=== PATIENT | female | born 1975 | race Caucasian/White ===

== ENCOUNTER → 2016-06-08 | Outpatient (CLI) | payer MEDICAID ==
[~2016-06-08] MED LIST: /ESOM40CA PO; BACL10TA2 PO; CELE-19 PO; COLA50CA3 PO; HYDR25T PO; LAMO10TA PO; MONT10TA2 PO; MULTTAB48 PO; POLYPOW XX; PROAAER INH; QUET1TAB7 PO; SERO50TA PO; SERT-141 PO; TRAM100T13 PO; TRAZ100T4 PO; ZOLO50TA PO; ZOLP5TAB PO
--- NOTE | 2016-06-30 00:46 | ECWPNPC ---
PATIENT NAME: LORA POSADA : 1975 GENDER: FEMALE VISIT DATE: 06/08/2016 DISCHARGE DATE: 06/08/16 1515 VISIT LOCKED DATE TIME: PHYSICIAN: DILLON WOLFF RESOURCE: DILLON WOLFF REASON FOR APPOINTMENT 1. LEG PAIN HISTORY OF PRESENT ILLNESS HISTORY OF PRESENT ILLNESS: PAIN THE PATIENT DESCRIBES THE PAIN... FALL RISK SCREENING: SCREENING :NO FALLS IN THE PAST YEAR TODAY'S VISIT: NOTES: DOING GENERALLY OK BUT IS HAVING STABBING PAIN IN BOTH CALVES AT NIGHT. RIGHT THIGH IS GENERALLY WELL CONTROLLED WITH PAIN ON CURRENT MEDS. RATES PAIN 4/10. . CURRENT MEDICATIONS TAKING SEROQUEL [address] HANCOCK ORALLY AT BEDTIME TAKING MONTELUKAST SODIUM 10 MG TABLET 1 TABLET IN THE EVENING ORALLY AT BEDTIME TAKING NEXIUM 40 MG CAPSULE DELAYED RELEASE 1 CAPSULE ORALLY ONCE A DAY TAKING PROAIR HFA 108 (90 BASE) MCG/ACT AEROSOL SOLUTION 1-2 PUFFS NEEDED INHALATION EVERY 4-6 HRS TAKING ADVAIR DISKUS 500-50 MCG/DOSE AEROSOL POWDER BREATH ACTIVATED 1 PUFF INHALATION TWICE A DAY TAKING AMBIEN 10 MG TABLET 1 TABLET AT BEDTIME NEEDED ORALLY ONCE A DAY TAKING LATUDA TABLET 1 TAB ORALLY ONCE A DAY AT BEDTIME TAKING VALIUM 2 MG TABLET 1 TABLET NEEDED ORALLY THREE TIMES A DAY TAKING BACLOFEN 10 MG TABLET 1 TABLET WITH FOOD OR MILK ORALLY TWICE DAILY TAKING COLACE 100 MG CAPSULE 1 CAPSULE ORALLY TWICE A DAY TAKING TRAMADOL HCL 50 MG TABLET 1-2 TABLET ORALLY EVERY 6 HRS PRN PAIN MDD=6 NOT-TAKING PERPHENAZINE-AMITRIPTYLINE 2-10 MG TABLET 1 TABLET ORALLY TWICE A DAY NOT-TAKING TRAMADOL HCL 50 MG TABLET 1-2 TABLET ORALLY EVERY 6 HRS PRN PAIN MDD=6 NOT-TAKING COLACE 100 MG CAPSULE 2 CAPSULE NEEDED ORALLY TWICE DAILY NOT-TAKING SENNA S 8.6-50 MG TABLET 2 TABLETS IN THE EVENING NEEDED ORALLY AT BEDTIME NOT-TAKING IBUPROFEN 800 MG TABLET 1 TABLET ORALLY TWICE DAILY NOT-TAKING IBUPROFEN 800 MG TABLET 1 TABLET ORALLY TWICE DAILY NOT-TAKING MULTIVITAMIN/MINERALS 27-1 MG CAPSULE 1 TAB ORALLY DAILY DISCONTINUED COLACE 100 MG CAPSULE 1 CAPSULE NEEDED ORALLY BID PRN DISCONTINUED BACLOFEN 10 MG TABLET 1 TABLET WITH FOOD OR MILK ORALLY TWICE DAILY MEDICATION LIST REVIEWED AND RECONCILED WITH THE PATIENT PAST MEDICAL HISTORY RIGHT LEG CHRONIC PAIN FROM SEVERE LACERATION AT AGE 13 ANXIETY AND DEPRESSION TOBACCO ABUSE ASTHMA IBS LEARNING DISORDER GERD ANEMIA CHRONIC FATIGUE SYNDROME ALLERGIES GABAPENTIN: PALPITATIONS: ALLERGY PENICILLIN (FOR ALLERGIES USE ONLY): VOMITING: ALLERGY MOBIC: DIARRHEA: ALLERGY AMOXICILLIN: VOMITING: ALLERGY SOCIAL HISTORY GENERAL: TOBACCO USE ARE YOU A:CURRENT SMOKER HOW MANY CIGARETTES A DAY DO YOU SMOKE?11-20 HOW SOON AFTER YOU WAKE UP DO YOU SMOKE YOUR FIRST CIGARETTE?WITHIN 5 MIN HOW OFTEN DO YOU SMOKE CIGARETTES?EVERY DAY PATIENT COUNSELED ON THE DANGERS OF TOBACCO USE AND URGED TO QUIT: COUNCELED ON THE IMPORTANCE OF QUITTING. ARE YOU INTERESTED IN QUITTING?THINKING ABOUT QUITTING LEARNING BARRIERS / SPECIAL NEEDS ORIENTED TO PLAN OF CARE: PATIENT, PAIN MANAGEMENT PATIENT, ORIENTED TO PLAN OF CARE: PATIENT, PAIN MANAGEMENT PATIENT. NEW PATIENT PAIN DIARY TODAY'S VISITNOTES FROM 0-10, WHAT LEVEL IS YOUR PAIN TODAY?0 PAIN CLINIC PFS, CLERGY, PUBLIC HEALTH REFERRALS PFS REFERRAL NEEDED?NO CLERGY REFERRAL NEEDED?NO PUBLIC HEALTH REFERRAL NEEDED?NO WAS THE PROVIDER NOTIFIED OF ANY PERTINENT INFO?NO PFS REFERRAL NEEDED?NO CLERGY REFERRAL NEEDED?NO PUBLIC HEALTH REFERRAL NEEDED?NO WAS THE PROVIDER NOTIFIED OF ANY PERTINENT INFO?NO REVIEW OF SYSTEMS CONSTITUTIONAL: ANY CHANGE IN YOUR MEDICAL CONDITION? NO . CHILLS NO . FEVER NO . INFECTION: DO YOU HAVE NEW INFECTIONS? NO . DO YOU HAVE HISTORY OF MRSA? NO . MUSCULOSKELETAL: ANY NEW PATTERNS OF PAIN OR NUMBNESS? YES, STABBING PAINS IN CALVES EVERYNIGHT SINCE WINTER BEGAN--THESE WAKE HER UP AT NIGHT . GASTROENTEROLOGY: ANY NEW CHANGE IN BOWEL CONTROL? NO . GENITOURINARY: ANY NEW CHANGE IN BLADDER CONTROL? NO . IS THERE A CHANCE YOU COULD BE ? NO . HEMATOLOGY/LYMPH: DO YOU TAKE ANY BLOOD THINNERS? (FOR EXAMPLE- COUMADIN, PLAVIX, AGGRENOX, PLATEL, PRADAXA, OR XARELTO) NO . WHEN WAS YOUR LAST DOSE? DATE: TIME: . NEUROLOGY: HAVE YOU FALLEN IN THE PAST 6 MONTHS? NO . ANY NEW EXTREMITY NUMBNESS OR WEAKNESS? NO . CARDIOLOGY: DO YOU HAVE A PACEMAKER OR DEFIBRILLATOR? NO . RESPIRATORY: HAVE YOU BEEN SICK IN THE PAST WEEK? NO . FEVER NO . FLU LIKE SYMPTOMS? NO . DO YOU USE ANY TYPE OF TOBACCO (SMOKE, SMOKELESS, CHEW)? WANTS TO QUIT SMOKING . COUGH NO . INTEGUMENTARY: DO YOU HAVE ANY RASHES OR OPEN SORES? NO . ALLERGIC/IMMUNO: ARE YOU ALLERGIC TO SHELLFISH OR IV DYE? NO . ANY NEW ALLERGIES? NO . PSYCHIATRIC: DO YOU HAVE THOUGHTS OF HURTING YOURSELF OR SOMEONE ELSE? NO . ARE YOU ABUSED, NEGLECTED, OR IN AN UNSAFE ENVIRONMENT? YES, FEELS HER APPARTMENT BUILDING IS UNSAFE. . ENDOCRINOLOGY: ARE YOU DIABETIC? NO . OTHER: DO YOU NEED ANY PRESCRIPTIONS? YES MONTELUKAST,NEXIUM,PROAIR,COLACE,TRAMADOL . IF YES, PLEASE LIST: ____ . ANY NEW PROBLEMS WITH YOUR MEDICATIONS? NO . WHEN DID YOU LAST EAT? ____ . WHEN DID YOU LAST DRINK? ____ . WHAT DID YOU LAST DRINK? ____ . NAME OF PERSON DRIVING YOU HOME? ____ . DO YOU HAVE ANY OTHER QUESTIONS OR CONCERNS YES,WOULD LIKE A LETTER STATING SHE NEEDS A DOWNSTAIRS APPARTMENT . REVIEWED BY: PROVIDER: DILLON YAO . VITAL SIGNS WT 106.2 LBS, HT 67 IN, BMI 16.63 INDEX, BP 113/69 MM HG, HR 78 /MIN, RR 16 /MIN, TEMP 98.5 F, OXYGEN SAT % 100%, NA INITIALS SC14:24, REVIEWED BY: AD. EXAMINATION GENERAL EXAMINATION: PSYCHALERT , ORIENTED X 3 . SPEACH RAMBLING - HARD TO KEEP ON TRACK. LUNGS:CLEAR TO AUSCULTATION BILATERALLY. HEART:HEART RATE REGULAR. MUSCULOSKELETAL:MILD TENDERNESS OVER LOW BACK AND RIGHT THIGH TIGHTNESS NOTED OVER RIGHT ILIOPSOAS. PAIN WITH EXTERNAL ROTATATION BILATERALLY AT HIPS.. ABLE TO STAND EASILY. ASSESSMENTS LEG PAIN - M79.606 (PRIMARY) TREATMENT LEG PAIN REFILL BACLOFEN TABLET, 10 MG, 1 TABLET WITH FOOD OR MILK, ORALLY, TWICE DAILY, 30 DAY(S), 60, REFILLS 5 REFILL COLACE CAPSULE, 100 MG, 1 CAPSULE, ORALLY, TWICE A DAY, 30 DAY(S), 60, REFILLS 5 REFILL TRAMADOL HCL TABLET, 50 MG, 1-2 TABLET, ORALLY, EVERY 6 HRS PRN PAIN MDD=6, 30 DAY(S), 180, REFILLS 5 NOTES: DO EXERCISES AND STRETCHES TO CALVES AND HIPS. CONTINUE CURRENT MEDS. PROCEDURE CODES FA211 ESTABILISHED PATIENT [facility] CHARGE DISPOSITION & COMMUNICATION FOLLOW UP [address] ESTRADA ELECTRONICALLY SIGNED BY NAMITA BERNARD ON 06/29/2016 AT 01:39 PM EST DISCLAIMER : THIS IS A VISIT SUMMARY EXTRACTED FROM THE [employer] CHART. IT IS NOT A COPY OF THE [employer] PROGRESS NOTE. CATARINA
== END ==
LOC: M PAIN 13:40
PROVIDERS: ATTEND Nurse Practitioner Family
DX: Z09 Encounter for follow-up examination after completed treatment for conditions other than malignant neoplasm (principal); G89.29 Other chronic pain; M79.606 Pain in leg, unspecified; R53.82 Chronic fatigue, unspecified; F41.9 Anxiety disorder, unspecified; F17.200 Nicotine dependence, unspecified, uncomplicated; J45.909 Unspecified asthma, uncomplicated; K58.9 Irritable bowel syndrome, unspecified; K21.9 Gastro-esophageal reflux disease without esophagitis; D64.9 Anemia, unspecified; Z88.8 Allergy status to other drugs, medicaments and biological substances; Z88.0 Allergy status to penicillin; Z88.6 Allergy status to analgesic agent; Z88.3 Allergy status to other anti-infective agents; Z79.891 Long term (current) use of opiate analgesic; Z79.899 Other long term (current) drug therapy; Z87.828 Personal history of other (healed) physical injury and trauma

== ENCOUNTER 2016-07-12 16:11 | Emergency (ER) | payer MEDICAID ==
[~2016-07-12] VITALS: Ht 167.6 cm; Wt 47.6 kg
[2016-07-12 16:11] VITALS: BP 93/63
[~2016-07-12 16:11] MED LIST changes: -SERT-141 PO; +SERT50TA PO
[2016-07-12] MEDS ORDERED: MONT10TA2 PO (16:36)
[2016-07-12] MEDS ORDERED: ALBU17IN INH (16:36)
[2016-07-12] MEDS ORDERED: BACL10TA2 PO (16:36)
== END 2016-07-12 16:52 | disposition left against medical advice (07) ==
LOC: M ED 16:49
DX: Z53.21 Procedure and treatment not carried out due to patient leaving prior to being seen by health care provider (principal)

== ENCOUNTER → 2016-09-16 | Outpatient (CLI) | payer OTHER, MEDICAID ==
[~2016-09-16] MED LIST changes: +ALBU17IN INH
--- NOTE | 2016-09-29 02:11 | ECWPNPC ---
PATIENT NAME: LORA POSADA : 1975 GENDER: FEMALE VISIT DATE: 09/16/2016 DISCHARGE DATE: 09/16/16 1517 VISIT LOCKED DATE TIME: PHYSICIAN: DILLON WOLFF RESOURCE: DILLON WOLFF HISTORY OF PRESENT ILLNESS HISTORY OF PRESENT ILLNESS: PAIN THE PATIENT DESCRIBES THE PAIN... FALL RISK SCREENING: SCREENING :NO FALLS IN THE PAST YEAR TODAY'S VISIT: NOTES: IS NOTING PAIN IN RIGHT LEG THIGH, AND IN FFEET WITH PROLONGLONED WALKING. RTAES PAIN 0-6/10 WITH MIN TO NO PAIN NOTED WHEN SEATED. STATES HER MEDS ARE HELPFUL AND THAT SHE IS HAVING NO ADVERSE REACTIONS TO HER MEDS.. CURRENT MEDICATIONS TAKING MONTELUKAST SODIUM 10 MG TABLET 1 TABLET IN THE EVENING ORALLY AT BEDTIME TAKING PROAIR HFA 108 (90 BASE) MCG/ACT AEROSOL SOLUTION 1-2 PUFFS NEEDED INHALATION EVERY 4-6 HRS TAKING ADVAIR DISKUS 500-50 MCG/DOSE AEROSOL POWDER BREATH ACTIVATED 1 PUFF INHALATION TWICE A DAY TAKING AMBIEN 10 MG TABLET 1 TABLET AT BEDTIME NEEDED ORALLY ONCE A DAY TAKING LATUDA TABLET 1 TAB ORALLY ONCE A DAY AT BEDTIME TAKING VALIUM 2 MG TABLET 1 TABLET NEEDED ORALLY THREE TIMES A DAY TAKING BACLOFEN 10 MG TABLET 1 TABLET WITH FOOD OR MILK ORALLY TWICE DAILY TAKING COLACE 100 MG CAPSULE 1 CAPSULE ORALLY TWICE A DAY TAKING TRAMADOL HCL 50 MG TABLET 1-2 TABLET ORALLY EVERY 6 HRS PRN PAIN MDD=6 NOT-TAKING SEROQUEL [address] HANCOCK ORALLY AT BEDTIME NOT-TAKING NEXIUM 40 MG CAPSULE DELAYED RELEASE 1 CAPSULE ORALLY ONCE A DAY NOT-TAKING PERPHENAZINE-AMITRIPTYLINE 2-10 MG TABLET 1 TABLET ORALLY TWICE A DAY NOT-TAKING TRAMADOL HCL 50 MG TABLET 1-2 TABLET ORALLY EVERY 6 HRS PRN PAIN MDD=6 NOT-TAKING COLACE 100 MG CAPSULE 2 CAPSULE NEEDED ORALLY TWICE DAILY NOT-TAKING SENNA S 8.6-50 MG TABLET 2 TABLETS IN THE EVENING NEEDED ORALLY AT BEDTIME NOT-TAKING IBUPROFEN 800 MG TABLET 1 TABLET ORALLY TWICE DAILY NOT-TAKING IBUPROFEN 800 MG TABLET 1 TABLET ORALLY TWICE DAILY NOT-TAKING MULTIVITAMIN/MINERALS 27-1 MG CAPSULE 1 TAB ORALLY DAILY MEDICATION LIST REVIEWED AND RECONCILED WITH THE PATIENT PAST MEDICAL HISTORY RIGHT LEG CHRONIC PAIN FROM SEVERE LACERATION AT AGE 13 ANXIETY AND DEPRESSION TOBACCO ABUSE ASTHMA IBS LEARNING DISORDER GERD ANEMIA CHRONIC FATIGUE SYNDROME ALLERGIES GABAPENTIN: PALPITATIONS: ALLERGY PENICILLIN (FOR ALLERGIES USE ONLY): VOMITING: ALLERGY MOBIC: DIARRHEA: ALLERGY AMOXICILLIN: VOMITING: ALLERGY SURGICAL HISTORY PARTIAL HYSTERECTOMY 2005 D AND C 2004 SOCIAL HISTORY GENERAL: TOBACCO USE ARE YOU A:CURRENT SMOKER HOW MANY CIGARETTES A DAY DO YOU SMOKE?11-20 HOW SOON AFTER YOU WAKE UP DO YOU SMOKE YOUR FIRST CIGARETTE?WITHIN 5 MIN HOW OFTEN DO YOU SMOKE CIGARETTES?EVERY DAY PATIENT COUNSELED ON THE DANGERS OF TOBACCO USE AND URGED TO QUIT:09/16/2016 COUNCELED ON THE IMPORTANCE OF QUITTING. ARE YOU INTERESTED IN QUITTING?THINKING ABOUT QUITTING COUNSELED THE PATIENT ON SMOKING CESSATION, EDUCATION [id number] LEARNING BARRIERS / SPECIAL NEEDS ORIENTED TO PLAN OF CARE: PATIENT, PAIN MANAGEMENT PATIENT, ORIENTED TO PLAN OF CARE: PATIENT, PAIN MANAGEMENT PATIENT. NEW PATIENT PAIN DIARY TODAY'S VISITNOTES FROM 0-10, WHAT LEVEL IS YOUR PAIN TODAY?0 PAIN CLINIC PFS, CLERGY, PUBLIC HEALTH REFERRALS PFS REFERRAL NEEDED?NO CLERGY REFERRAL NEEDED?NO PUBLIC HEALTH REFERRAL NEEDED?NO WAS THE PROVIDER NOTIFIED OF ANY PERTINENT INFO?NO PFS REFERRAL NEEDED?NO CLERGY REFERRAL NEEDED?NO PUBLIC HEALTH REFERRAL NEEDED?NO WAS THE PROVIDER NOTIFIED OF ANY PERTINENT INFO?NO HOSPITALIZATION/MAJOR DIAGNOSTIC PROCEDURE INPATIENT MENTAL HEALTH DUE TO DEPRESSION 2004 RIGHT LEG SURGERY 1988 REVIEW OF SYSTEMS CONSTITUTIONAL: ANY CHANGE IN YOUR MEDICAL CONDITION? NO . CHILLS NO . FEVER NO . INFECTION: DO YOU HAVE NEW INFECTIONS? NO . DO YOU HAVE HISTORY OF MRSA? NO . MUSCULOSKELETAL: ANY NEW PATTERNS OF PAIN OR NUMBNESS? YES. PT STATES NEW PATTERNS OF NUMBNESS TO BILAT HANDS AND FEET AT NIGHT. . GASTROENTEROLOGY: ANY NEW CHANGE IN BOWEL CONTROL? NO . GENITOURINARY: ANY NEW CHANGE IN BLADDER CONTROL? NO . IS THERE A CHANCE YOU COULD BE ? NO . HEMATOLOGY/LYMPH: DO YOU TAKE ANY BLOOD THINNERS? (FOR EXAMPLE- COUMADIN, PLAVIX, AGGRENOX, PLATEL, PRADAXA, OR XARELTO) NO . WHEN WAS YOUR LAST DOSE? DATE: TIME: . NEUROLOGY: HAVE YOU FALLEN IN THE PAST 6 MONTHS? NO . ANY NEW EXTREMITY NUMBNESS OR WEAKNESS? NO . HEADACHE INTERMITTANT . CARDIOLOGY: DO YOU HAVE A PACEMAKER OR DEFIBRILLATOR? NO . RESPIRATORY: HAVE YOU BEEN SICK IN THE PAST WEEK? NO . FEVER NO . FLU LIKE SYMPTOMS? NO . COUGH NO . INTEGUMENTARY: DO YOU HAVE ANY RASHES OR OPEN SORES? NO . ALLERGIC/IMMUNO: ARE YOU ALLERGIC TO SHELLFISH OR IV DYE? NO . ANY NEW ALLERGIES? NO . PSYCHIATRIC: DO YOU HAVE THOUGHTS OF HURTING YOURSELF OR SOMEONE ELSE? NO . ARE YOU ABUSED, NEGLECTED, OR IN AN UNSAFE ENVIRONMENT? NO . ENDOCRINOLOGY: ARE YOU DIABETIC? NO . OTHER: DO YOU NEED ANY PRESCRIPTIONS? NO . IF YES, PLEASE LIST: ____ . ANY NEW PROBLEMS WITH YOUR MEDICATIONS? NO . WHEN DID YOU LAST EAT? ____ . WHEN DID YOU LAST DRINK? ____ . WHAT DID YOU LAST DRINK? ____ . NAME OF PERSON DRIVING YOU HOME? ____ . DO YOU HAVE ANY OTHER QUESTIONS OR CONCERNS NO . PSYCHOLOGY: ARE YOU RECEIVING COUNSELING? SEEING BEHAVIORAL HEALTH . REVIEWED BY: PROVIDER: DILLON YAO . VITAL SIGNS WT 105.4 LBS, HT 67 IN, BMI 16.51 INDEX, BP 119/69 MM HG, HR 85 /MIN, RR 16 /MIN, TEMP 98.4 F, OXYGEN SAT % 99%, SAFE IN ENV? (Y/N) Y, NA INITIALS AW 1446, REVIEWED BY: EM. EXAMINATION GENERAL EXAMINATION: PSYCHALERT , ORIENTED X 3 . SPEACH RAMBLING - HARD TO KEEP ON TRACK. LUNGS:CLEAR TO AUSCULTATION BILATERALLY. HEART:HEART RATE REGULAR. MUSCULOSKELETAL:MILD TENDERNESS OVER LOW BACK AND RIGHT THIGH TIGHTNESS NOTED OVER RIGHT ILIOPSOAS. PAIN WITH EXTERNAL ROTATATION BILATERALLY AT HIPS.. ABLE TO STAND EASILY. ASSESSMENTS LEG PAIN - M79.606 (PRIMARY) TREATMENT LEG PAIN START NICODERM CQ PATCH 24 HOUR, 21 MG/24HR, 1 PATCH TO SKIN, TRANSDERMAL, ONCE A DAY, 30 DAY(S), 30, REFILLS 0 NOTES: DO NOT SMOKE AND USE NICODERM AT THE SAME TIME. PROCEDURE CODES FA211 ESTABILISHED PATIENT [facility] CHARGE DISPOSITION & COMMUNICATION FOLLOW UP 3 MONTH (REASON: LEG PAIN) ELECTRONICALLY SIGNED BY NAMITA BERNARD ON 09/28/2016 AT 08:38 AM EDT DISCLAIMER : THIS IS A VISIT SUMMARY EXTRACTED FROM THE [employer] CHART. IT IS NOT A COPY OF THE [employer] PROGRESS NOTE. MTDD
== END | disposition home or self-care (01) ==
LOC: M PAIN 14:40
PROVIDERS: ATTEND Nurse Practitioner Family
DX: G89.29 Other chronic pain (principal); M79.606 Pain in leg, unspecified; J45.909 Unspecified asthma, uncomplicated; F41.9 Anxiety disorder, unspecified; F33.9 Major depressive disorder, recurrent, unspecified; K58.9 Irritable bowel syndrome, unspecified; K21.9 Gastro-esophageal reflux disease without esophagitis; D64.9 Anemia, unspecified; F81.9 Developmental disorder of scholastic skills, unspecified; Z79.899 Other long term (current) drug therapy; Z79.51 Long term (current) use of inhaled steroids; Z88.0 Allergy status to penicillin; Z88.8 Allergy status to other drugs, medicaments and biological substances; F17.210 Nicotine dependence, cigarettes, uncomplicated

== ENCOUNTER → 2016-12-28 | Outpatient (CLI) | payer OTHER, MEDICAID ==
[~2016-12-28] MED LIST changes: -CELE-19 PO; +CELE1CAP4 PO; +HYDR-3363 PO; -HYDR25T PO; +TRAZ-136 PO; -TRAZ100T4 PO
--- NOTE | 2017-01-09 23:30 | ECWPNPC ---
PATIENT NAME: LORA POSADA : 1975 GENDER: FEMALE VISIT DATE: 12/28/2016 DISCHARGE DATE: 12/28/16 1543 VISIT LOCKED DATE TIME: PHYSICIAN: DILLON WOLFF RESOURCE: DILLON WOLFF HISTORY OF PRESENT ILLNESS HISTORY OF PRESENT ILLNESS: PAIN THE PATIENT DESCRIBES THE PAIN... FALL RISK SCREENING: SCREENING :NO FALLS IN THE PAST YEAR TODAY'S VISIT: NOTES: IS HAVING TROUBLE WITH MENTAL HEALTH MEDS. REPORTS NEW PAIN LEFT PAIN IN LEFT THIGH INTERMITTANT. IS NOTING MORE SPASMS SINCE BEING TAKEN OFF VALIUMRATES PAIN IN RIGHT LEG 0-7/10 DEPENDING ON ACTIVITY. NOTES CURRENT MEDS ALLOW HER TO FUNCTION AND THAT SHE HAS MOST DAYS NO PAIN IN THE LEG.. CURRENT MEDICATIONS TAKING MONTELUKAST SODIUM 10 MG TABLET 1 TABLET IN THE EVENING ORALLY AT BEDTIME TAKING PROAIR HFA 108 (90 BASE) MCG/ACT AEROSOL SOLUTION 1-2 PUFFS NEEDED INHALATION EVERY 4-6 HRS TAKING ADVAIR DISKUS 500-50 MCG/DOSE AEROSOL POWDER BREATH ACTIVATED 1 PUFF INHALATION TWICE A DAY TAKING LATUDA TABLET 1 TAB ORALLY ONCE A DAY AT BEDTIME TAKING BACLOFEN 10 MG TABLET 1 TABLET WITH FOOD OR MILK ORALLY TWICE DAILY TAKING COLACE 100 MG CAPSULE 1 CAPSULE ORALLY TWICE A DAY TAKING NICODERM CQ 21 MG/24HR PATCH 24 HOUR 1 PATCH TO SKIN TRANSDERMAL ONCE A DAY TAKING TRAMADOL HCL 50 MG TABLET 1-2 TABLET ORALLY EVERY 6 HRS PRN PAIN MDD=6 NOT-TAKING AMBIEN 10 MG TABLET 1 TABLET AT BEDTIME NEEDED ORALLY ONCE A DAY NOT-TAKING VALIUM 2 MG TABLET 1 TABLET NEEDED ORALLY THREE TIMES A DAY NOT-TAKING SEROQUEL [address] HANCOCK ORALLY AT BEDTIME NOT-TAKING NEXIUM 40 MG CAPSULE DELAYED RELEASE 1 CAPSULE ORALLY ONCE A DAY NOT-TAKING PERPHENAZINE-AMITRIPTYLINE 2-10 MG TABLET 1 TABLET ORALLY TWICE A DAY NOT-TAKING TRAMADOL HCL 50 MG TABLET 1-2 TABLET ORALLY EVERY 6 HRS PRN PAIN MDD=6 NOT-TAKING COLACE 100 MG CAPSULE 2 CAPSULE NEEDED ORALLY TWICE DAILY NOT-TAKING SENNA S 8.6-50 MG TABLET 2 TABLETS IN THE EVENING NEEDED ORALLY AT BEDTIME NOT-TAKING IBUPROFEN 800 MG TABLET 1 TABLET ORALLY TWICE DAILY NOT-TAKING IBUPROFEN 800 MG TABLET 1 TABLET ORALLY TWICE DAILY NOT-TAKING MULTIVITAMIN/MINERALS 27-1 MG CAPSULE 1 TAB ORALLY DAILY MEDICATION LIST REVIEWED AND RECONCILED WITH THE PATIENT PAST MEDICAL HISTORY RIGHT LEG CHRONIC PAIN FROM SEVERE LACERATION AT AGE 13 ANXIETY AND DEPRESSION TOBACCO ABUSE ASTHMA IBS LEARNING DISORDER GERD ANEMIA CHRONIC FATIGUE SYNDROME ALLERGIES GABAPENTIN: PALPITATIONS: ALLERGY PENICILLIN (FOR ALLERGIES USE ONLY): VOMITING: ALLERGY MOBIC: DIARRHEA: ALLERGY AMOXICILLIN: VOMITING: ALLERGY SURGICAL HISTORY PARTIAL HYSTERECTOMY 2005 D AND C 2004 HOSPITALIZATION/MAJOR DIAGNOSTIC PROCEDURE INPATIENT MENTAL HEALTH DUE TO DEPRESSION 2004 RIGHT LEG SURGERY 1988 REVIEW OF SYSTEMS REVIEWED BY: PROVIDER: DILLON MURRAYP . CONSTITUTIONAL: ANY CHANGE IN YOUR MEDICAL CONDITION? YES, PT STATES SHE DEVELPOED A RASH FROM NICODERM PATCH, STOPPED USING IT AND STARTED SMOKING AGAIN. DISCUSSED ROTATING SITES AND USING OTC HYDROCORTISONE FOR RASH . CHILLS NO . FEVER NO . INFECTION: DO YOU HAVE NEW INFECTIONS? NO . DO YOU HAVE HISTORY OF MRSA? NO . MUSCULOSKELETAL: ANY NEW PATTERNS OF PAIN OR NUMBNESS? YES, PT C/O LEFT FOOT DIGIT #1 PAIN X WEEK. PT STATES SHE DROPPED A CAN OF FOOD ON TOE . GASTROENTEROLOGY: ANY NEW CHANGE IN BOWEL CONTROL? NO . GENITOURINARY: ANY NEW CHANGE IN BLADDER CONTROL? NO . IS THERE A CHANCE YOU COULD BE ? NO . HEMATOLOGY/LYMPH: DO YOU TAKE ANY BLOOD THINNERS? (FOR EXAMPLE- COUMADIN, PLAVIX, AGGRENOX, PLATEL, PRADAXA, OR XARELTO) NO . WHEN WAS YOUR LAST DOSE? DATE: TIME: . NEUROLOGY: HAVE YOU FALLEN IN THE PAST 6 MONTHS? NO . ANY NEW EXTREMITY NUMBNESS OR WEAKNESS? NO . CARDIOLOGY: DO YOU HAVE A PACEMAKER OR DEFIBRILLATOR? NO . RESPIRATORY: HAVE YOU BEEN SICK IN THE PAST WEEK? NO . FEVER NO . FLU LIKE SYMPTOMS? NO . DO YOU USE ANY TYPE OF TOBACCO (SMOKE, SMOKELESS, CHEW)? WORKING ON SMOKING CESSATION . COUGH NO . INTEGUMENTARY: DO YOU HAVE ANY RASHES OR OPEN SORES? NO . ALLERGIC/IMMUNO: ARE YOU ALLERGIC TO SHELLFISH OR IV DYE? NO . ANY NEW ALLERGIES? NO . PSYCHIATRIC: DO YOU HAVE THOUGHTS OF HURTING YOURSELF OR SOMEONE ELSE? NO . ARE YOU ABUSED, NEGLECTED, OR IN AN UNSAFE ENVIRONMENT? NO . ENDOCRINOLOGY: ARE YOU DIABETIC? NO . OTHER: DO YOU NEED ANY PRESCRIPTIONS? NO . IF YES, PLEASE LIST: ____ . ANY NEW PROBLEMS WITH YOUR MEDICATIONS? NO . WHEN DID YOU LAST EAT? ____ . WHEN DID YOU LAST DRINK? ____ . WHAT DID YOU LAST DRINK? ____ . NAME OF PERSON DRIVING YOU HOME? ____ . DO YOU HAVE ANY OTHER QUESTIONS OR CONCERNS NO . VITAL SIGNS WT 112.6 LBS, HT 67 IN, BMI 17.63 INDEX, BP 107/64 MM HG, HR 93 /MIN, RR 18 /MIN, TEMP 98.0 F, OXYGEN SAT % 99%, NA INITIALS SC 14:36. EXAMINATION GENERAL EXAMINATION: PSYCHALERT , ORIENTED X 3 . SPEACH RAMBLING - HARD TO KEEP ON TRACK. LUNGS:CLEAR TO AUSCULTATION BILATERALLY. HEART:HEART RATE REGULAR. MUSCULOSKELETAL:MILD TENDERNESS OVER LOW BACK AND RIGHT THIGH TIGHTNESS NOTED OVER RIGHT ILIOPSOAS. PAIN WITH EXTERNAL ROTATATION BILATERALLY AT HIPS.. ABLE TO STAND EASILY. ASSESSMENTS LEG PAIN - M79.606 (PRIMARY) TREATMENT LEG PAIN START BACLOFEN TABLET, 10 MG, 1 TABLET WITH FOOD OR MILK, ORALLY, THREE TIMES A DAY, 30 DAY(S), 90, REFILLS 1 REFILL TRAMADOL HCL TABLET, 50 MG, 1-2 TABLET, ORALLY, EVERY 6 HRS PRN PAIN MDD=6, 30 DAY(S), 180, REFILLS 2 NOTES: CALL [facility] ABOUT A PRIMARY CARE DOCTOR. PROCEDURE CODES FA211 ESTABILISHED PATIENT [facility] CHARGE DISPOSITION & COMMUNICATION FOLLOW UP 3 MONTHS (REASON: LEG PAIN) ELECTRONICALLY SIGNED BY NAMITA BERNARD ON 01/09/2017 AT 02:55 PM EDT DISCLAIMER : THIS IS A VISIT SUMMARY EXTRACTED FROM THE [employer] CHART. IT IS NOT A COPY OF THE [employer] PROGRESS NOTE. CATARINA
== END | disposition home or self-care (01) ==
LOC: M PAIN 14:45
PROVIDERS: ATTEND Nurse Practitioner Family
DX: G89.29 Other chronic pain (principal); M79.606 Pain in leg, unspecified; F41.9 Anxiety disorder, unspecified; F33.9 Major depressive disorder, recurrent, unspecified; J45.909 Unspecified asthma, uncomplicated; K58.9 Irritable bowel syndrome, unspecified; F81.9 Developmental disorder of scholastic skills, unspecified; K21.9 Gastro-esophageal reflux disease without esophagitis; D64.9 Anemia, unspecified; F17.210 Nicotine dependence, cigarettes, uncomplicated; Z88.0 Allergy status to penicillin; Z88.8 Allergy status to other drugs, medicaments and biological substances; Z79.899 Other long term (current) drug therapy; Z79.51 Long term (current) use of inhaled steroids

== ENCOUNTER → 2017-05-13 | Outpatient (CLI) | payer OTHER, MEDICAID | LOC: M PAIN 13:30 | DX: M79.606 Pain in leg, unspecified (principal); Q79.6 Ehlers-Danlos syndromes; Z79.899 Other long term (current) drug therapy; Z79.891 Long term (current) use of opiate analgesic; F17.210 Nicotine dependence, cigarettes, uncomplicated; Z88.0 Allergy status to penicillin; Z88.1 Allergy status to other antibiotic agents; Z88.8 Allergy status to other drugs, medicaments and biological substances | CPT/HCPCS: G0463 ==

== ENCOUNTER → 2017-06-13 | Outpatient (CLI) | payer OTHER, MEDICAID | LOC: M PAIN 14:15 | DX: M79.606 Pain in leg, unspecified (principal); Q79.6 Ehlers-Danlos syndromes; F41.9 Anxiety disorder, unspecified; F32.9 Major depressive disorder, single episode, unspecified; F17.210 Nicotine dependence, cigarettes, uncomplicated; J45.909 Unspecified asthma, uncomplicated; Z79.899 Other long term (current) drug therapy; Z88.0 Allergy status to penicillin; Z88.1 Allergy status to other antibiotic agents; Z88.6 Allergy status to analgesic agent; Z88.8 Allergy status to other drugs, medicaments and biological substances | CPT/HCPCS: G0463 ==

== ENCOUNTER → 2017-08-29 | Outpatient (CLI) | payer OTHER, MEDICAID | LOC: M PAIN 14:15 | DX: M79.606 Pain in leg, unspecified (principal); Q79.6 Ehlers-Danlos syndromes; F41.9 Anxiety disorder, unspecified; F32.9 Major depressive disorder, single episode, unspecified; J45.909 Unspecified asthma, uncomplicated; K21.9 Gastro-esophageal reflux disease without esophagitis; F17.210 Nicotine dependence, cigarettes, uncomplicated; R53.82 Chronic fatigue, unspecified; Z79.899 Other long term (current) drug therapy; Z88.0 Allergy status to penicillin; Z88.5 Allergy status to narcotic agent; Z88.8 Allergy status to other drugs, medicaments and biological substances | CPT/HCPCS: G0463 ==

== ENCOUNTER → 2017-09-21 | Outpatient (CLI) | payer OTHER, MEDICAID | LOC: M PAIN 14:30 | DX: Q79.6 Ehlers-Danlos syndromes (principal); M79.671 Pain in right foot; F41.9 Anxiety disorder, unspecified; F32.9 Major depressive disorder, single episode, unspecified; F17.210 Nicotine dependence, cigarettes, uncomplicated; J45.909 Unspecified asthma, uncomplicated; R53.82 Chronic fatigue, unspecified; Z79.899 Other long term (current) drug therapy; Z88.0 Allergy status to penicillin; Z88.6 Allergy status to analgesic agent; Z88.8 Allergy status to other drugs, medicaments and biological substances | CPT/HCPCS: G0463 ==

== ENCOUNTER → 2018-03-06 | Outpatient (CLI) | payer OTHER, MEDICAID | LOC: M PAIN 09:30 | DX: M54.5 Low back pain (principal); M79.606 Pain in leg, unspecified; Q79.6 Ehlers-Danlos syndromes; M79.671 Pain in right foot; J45.909 Unspecified asthma, uncomplicated; F41.9 Anxiety disorder, unspecified; F32.9 Major depressive disorder, single episode, unspecified; F17.210 Nicotine dependence, cigarettes, uncomplicated; Z79.899 Other long term (current) drug therapy; Z88.0 Allergy status to penicillin; Z88.1 Allergy status to other antibiotic agents; Z88.5 Allergy status to narcotic agent; Z88.8 Allergy status to other drugs, medicaments and biological substances | CPT/HCPCS: G0463 ==

== ENCOUNTER → 2018-07-27 | Outpatient (CLI) | payer OTHER, MEDICAID ==
[~2018-07-27] MED LIST changes: -TRAZ-136 PO; +TRAZ-163 PO
--- NOTE | 2018-07-29 00:44 | ECWPNPC ---
PATIENT NAME: LORA POSADA : 1975 GENDER: FEMALE VISIT DATE: 07/27/2018 DISCHARGE DATE: 07/27/18 1454 VISIT LOCKED DATE TIME: PHYSICIAN: KATELYN PACHECO RESOURCE: KATELYN PACHECO REASON FOR APPOINTMENT 1. HIP HISTORY OF PRESENT ILLNESS HISTORY OF PRESENT ILLNESS: PAIN THE PATIENT DESCRIBES THE PAINDURING THE LAST MONTH SEVERITY - PAIN SCORE OF6/10 PATIENT IS A 43 YR OLD FEMALE HERE FOR F/U ON LOW BACK PAIN AND LEG SPASMS. PAIN SCORE TODAY 6/10.PATINT SAYS SHE FEELS THE BACLOFEN DOES NOT HELP AND WOULD LIKE TO TRY SOMETHING DIFFERENT.SHE DENIES FEVER, CHILLS , WEIGHT LOSS AND RADICULAR SYMPTOMS. FALL RISK SCREENING: SCREENING : NO FALLS IN THE PAST YEAR. CURRENT MEDICATIONS TAKING VITAMIN B12 100 MCG TABLET ORALLY TAKING VITAMIN C 250 MG TABLET CHEWABLE 1 TABLET ORALLY ONCE A DAY TAKING MULTIVITAMIN/MINERALS 27-1 MG CAPSULE 1 TAB ORALLY DAILY TAKING BACLOFEN 10 MG TABLET 1 TABLET WITH FOOD OR MILK ORALLY THREE TIMES A DAY TAKING TRAMADOL HCL 50 MG TABLET 1-2 TABLET ORALLY EVERY 6 HRS PRN PAIN MDD=6 NOT-TAKING ZOLPIDEM TARTRATE 10 MG TABLET 1 TABLET AT BEDTIME NEEDED ORALLY ONCE A DAY NOT-TAKING MONTELUKAST SODIUM 10 MG TABLET 1 TABLET IN THE EVENING ORALLY AT BEDTIME NOT-TAKING PROAIR HFA 108 (90 BASE) MCG/ACT AEROSOL SOLUTION 1-2 PUFFS NEEDED INHALATION EVERY 4-6 HRS NOT-TAKING ADVAIR DISKUS 500-50 MCG/DOSE AEROSOL POWDER BREATH ACTIVATED 1 PUFF INHALATION TWICE A DAY NOT-TAKING LATUDA TABLET 1 TAB ORALLY ONCE A DAY AT BEDTIME NOT-TAKING COLACE 100 MG CAPSULE 1 CAPSULE ORALLY TWICE A DAY NOT-TAKING NICODERM CQ 21 MG/24HR PATCH 24 HOUR 1 PATCH TO SKIN TRANSDERMAL ONCE A DAY NOT-TAKING AMBIEN 10 MG TABLET 1 TABLET AT BEDTIME NEEDED ORALLY ONCE A DAY NOT-TAKING VALIUM 2 MG TABLET 1 TABLET NEEDED ORALLY THREE TIMES A DAY NOT-TAKING SEROQUEL [address] HANCOCK ORALLY AT BEDTIME NOT-TAKING NEXIUM 40 MG CAPSULE DELAYED RELEASE 1 CAPSULE ORALLY ONCE A DAY NOT-TAKING PERPHENAZINE-AMITRIPTYLINE 2-10 MG TABLET 1 TABLET ORALLY TWICE A DAY NOT-TAKING COLACE 100 MG CAPSULE 2 CAPSULE NEEDED ORALLY TWICE DAILY NOT-TAKING SENNA S 8.6-50 MG TABLET 2 TABLETS IN THE EVENING NEEDED ORALLY AT BEDTIME NOT-TAKING IBUPROFEN 800 MG TABLET 1 TABLET ORALLY TWICE DAILY NOT-TAKING IBUPROFEN 800 MG TABLET 1 TABLET ORALLY TWICE DAILY NOT-TAKING BACLOFEN 10 MG TABLET 1 TABLET WITH FOOD OR MILK ORALLY TWICE DAILY MEDICATION LIST REVIEWED AND RECONCILED WITH THE PATIENT PAST MEDICAL HISTORY RIGHT LEG CHRONIC PAIN FROM SEVERE LACERATION AT AGE 13 ANXIETY AND DEPRESSION TOBACCO ABUSE ASTHMA IBS LEARNING DISORDER GERD ANEMIA CHRONIC FATIGUE SYNDROME ALLERGIES GABAPENTIN: PALPITATIONS - ALLERGY PENICILLIN (FOR ALLERGIES USE ONLY): VOMITING - ALLERGY MOBIC: DIARRHEA - ALLERGY AMOXICILLIN: VOMITING - ALLERGY NICODERM PATCH: RASH - ALLERGY SURGICAL HISTORY PARTIAL HYSTERECTOMY 2005 D AND C 2004 FAMILY HISTORY MATERNAL GRAND MOTHER: BREAST CANCER HTN: FATHER, SISTER\NHYPOTHYROIDISM SISTER\NASTHMA, COPD MOTHER\NDM GRANDMOTHER\NCANCER: BREAST AUNTS, GRANDMOTHER. SOCIAL HISTORY GENERAL: TOBACCO USE ARE YOU A:CURRENT SMOKER ARE YOU INTERESTED IN QUITTING?THINKING ABOUT QUITTING STATES TRYING TO QUIT, WANTS PATCHES PREVIOUS QUIT ATTEMPTS?YES, MORE THAN 6 MONTHS AGO. COUNSELED THE PATIENT ON SMOKING CESSATION, EDUCATION [id number]/29/2018 HOW MANY CIGARETTES A DAY DO YOU SMOKE?6-10 HOW SOON AFTER YOU WAKE UP DO YOU SMOKE YOUR FIRST CIGARETTE?WITHIN 5 MIN HOW OFTEN DO YOU SMOKE CIGARETTES?EVERY DAY PATIENT COUNSELED ON THE DANGERS OF TOBACCO USE AND URGED TO QUIT:07/27/2018 COUNCELED ON THE IMPORTANCE OF QUITTING. VAPORYES STARTED 04/08/17 TO HELP HER QUIT SMOKING. AD LATEX QUESTIONNAIRE LATEX ALLERGY : HAVE YOU EVER DEVELOPED ANY TYPE OF REACTION AFTER HANDLING LATEX PRODUCTS SUCH RUBBER GLOVES, CONDOMS, DIAPHRAGMS, BALLOONS, SOCKS, OR UNDERWEAR?NO LATEX ALLERGY : HAVE YOU EVER DEVELOPED ANY TYPE OF REACTION DURING OR AFTER DENTAL APPOINTMENT, VAGINAL/RECTAL EXAMINATION, SURGICAL PROCEDURE, OR ANY OTHER EXPOSURE?NO LATEX RISK : HAVE YOU EVER HAD ANY DIFFICULTY BREATHING OR HIVES AFTER EATING OR HANDLING ANY FRUITS, OR VEGETABLES; SUCH KIWI, BANANAS, STONE FRUITS, OR CHESTNUTSNO LATEX RISK : DO YOU HAVE A PREVIOUS PERSONAL HISTORY OF MORE THAN NINE SURGERIES, SPINA BIFIDA, OR REPEATED CATHERTIZATIONS? NO LATEX RISK : ARE YOU FREQUENTLY EXPOSED TO LATEX PRODUCTS IN YOUR OCCUPATION?NO DATE ASKED : 07/27/2018 ALCOHOL SCREENING DID YOU HAVE A DRINK CONTAINING ALCOHOL IN THE PAST YEAR?NO POINTS0 INTERPRETATIONNEGATIVE RECREATIONAL DRUG USE DRUG USE?NO ALEVISM [id number] OTHER NO TEMPLE BELIEFS THAT WOULD IMPACT HEALTH CARE. LANGUAGE LANGUAGES SPOKEN:TAJIK LEARNING BARRIERS / SPECIAL NEEDS ORIENTED TO PLAN OF CARE: PATIENT, PAIN MANAGEMENT PATIENT, ORIENTED TO PLAN OF CARE: PATIENT, PAIN MANAGEMENT PATIENT. NEW PATIENT PAIN DIARY TODAY'S VISITNOTES FROM 0-10, WHAT LEVEL IS YOUR PAIN TODAY?6 PAIN CLINIC PFS, CLERGY, PUBLIC HEALTH REFERRALS WAS THE PROVIDER NOTIFIED OF ANY PERTINENT INFO?YES HAS THE PATIENT BEEN EDUCATED REGARDING HIS/HER PLAN OF CARE?YES HAS THE PATIENT BEEN EDUCATED REGARDING PAIN, THE RISK FOR PAIN, THE IMPORTANCE OF EFFECTIVE PAIN MANAGEMENT, AND THE PAIN ASSESSMENT PROCESS?YES ADVANCE DIRECTIVE ADVANCE DIRECTIVE DISCUSSED WITH PATIENT:YES DECLINED INFORMATION REVIEWED WITH PATIENT 03/06/18 8347 JS. HOSPITALIZATION/MAJOR DIAGNOSTIC PROCEDURE INPATIENT MENTAL HEALTH DUE TO DEPRESSION 2004 RIGHT LEG SURGERY 1988 REVIEW OF SYSTEMS REVIEWED BY: PROVIDER: HANK Betancur CONSTITUTIONAL: ANY CHANGE IN YOUR MEDICAL CONDITION? NO . CHILLS NO . FEVER NO . INFECTION: DO YOU HAVE NEW INFECTIONS? NO . DO YOU HAVE HISTORY OF MRSA? NO . MUSCULOSKELETAL: ANY NEW PATTERNS OF PAIN OR NUMBNESS? NO . GASTROENTEROLOGY: ANY NEW CHANGE IN BOWEL CONTROL? NO . GENITOURINARY: ANY NEW CHANGE IN BLADDER CONTROL? NO . IS THERE A CHANCE YOU COULD BE ? NO . HEMATOLOGY/LYMPH: DO YOU TAKE ANY BLOOD THINNERS? (FOR EXAMPLE- COUMADIN, PLAVIX, AGGRENOX, PLATEL, PRADAXA, OR XARELTO) NO . WHEN WAS YOUR LAST DOSE? DATE: TIME: . NEUROLOGY: HAVE YOU FALLEN IN THE PAST 12 MONTHS? YES, PT STATES THAT SHE FELL WHILE AT HOME, FELL DOWN STAIRS, NO INJURY, NO REPORT TO ED . ANY NEW EXTREMITY NUMBNESS OR WEAKNESS? NO . CARDIOLOGY: DO YOU HAVE A PACEMAKER OR DEFIBRILLATOR? NO . RESPIRATORY: HAVE YOU BEEN SICK IN THE PAST WEEK? NO . FEVER NO . FLU LIKE SYMPTOMS? NO . COUGH NO . INTEGUMENTARY: DO YOU HAVE ANY RASHES OR OPEN SORES? NO . ALLERGIC/IMMUNO: ARE YOU ALLERGIC TO IV DYE? NO . ANY NEW ALLERGIES? NO . PSYCHIATRIC: DO YOU HAVE THOUGHTS OF HURTING YOURSELF OR SOMEONE ELSE? NO . ARE YOU ABUSED, NEGLECTED, OR IN AN UNSAFE ENVIRONMENT? NO . ENDOCRINOLOGY: ARE YOU DIABETIC? NO . OTHER: DO YOU NEED ANY PRESCRIPTIONS? YES . IF YES, PLEASE LIST: ____ . ANY NEW PROBLEMS WITH YOUR MEDICATIONS? NO . WHEN DID YOU LAST EAT? ____ . WHEN DID YOU LAST DRINK? ____ . WHAT DID YOU LAST DRINK? ____ . NAME OF PERSON DRIVING YOU HOME? ____ . DO YOU HAVE ANY OTHER QUESTIONS OR CONCERNS NO . VITAL SIGNS WT 118.6 LBS, HT 67 IN, BMI 18.57 INDEX, BP 105/69 MM HG, HR 77 /MIN, RR 18 /MIN, TEMP 97.5 F, OXYGEN SAT % 98%, SAFE IN ENV? (Y/N) Y, NA INITIALS AW 1353, REVIEWED BY: TOMASZ. EXAMINATION GENERAL EXAMINATION: GENERAL APPEARANCE:NO ACUTE DISTRESS, WELL NOURISHED AND HYDRATED. PSYCHAPPROPRIATE MOOD AND AFFECT . HEENT:EOMI, NO SCLERAL ICTERUS, NARES PATENT, ORAL MUCOSA MOIST. HEART:NO MURMURS, REGULAR RATE AND RHYTHM. BACK: NO BONY TENDERNESS, LUMBAR PARASPINAL TENDERNESS. 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 TAKE 1 TAB AT NIGHT FOR 1 WEEK AND GRADUALLY INCREASE TO 2 TABS DAILY.ISTOP REGISTRY REVIEWED AND DEMONSTRATES COMPLLIANCE. (REF # [id number] ) BRINGS IN MEDICATIONS WHICH IS APPROPRIATE FOR WHAT WAS DISPENSED. RECENT URINE TOXICOLOGY REVIEWED. NO UNAUTHORIZED MEDICATIONS. NO ILLICIT SUBSTANCES AND PRESCRIBED MEDICATIONS WERE PRESENT. , RISKS AND BENEFITS OF NARCOTIC/OPIOD MEDICATIONS WERE REVIEWED WITH PATIENT - THIS INCLUDES BUT IS NOT LIMITED TO RISK OF DEPENDANCE/DEVELOPMENT OF ADDICTION, MOOD DISTURBANCE AND DEPRESSION, OSTEOPOROSIS, HORMONAL AND LABIDAL CHANGES, RESPIRATORY DEPRESSION AND . PATIENT IS ADVISED NOT TO DRIVE OR DRINK ALCOHOL WHILE ON THESE MEDICATIONS.URINE TOX TODAY. PROCEDURE CODES FA211 ESTABILISHED PATIENT [facility] CHARGE DISPOSITION & COMMUNICATION FOLLOW UP 3 MONTHS ELECTRONICALLY SIGNED BY NAJMA MELLO ON 07/28/2018 AT 01:39 PM EDT DISCLAIMER : THIS IS A VISIT SUMMARY EXTRACTED FROM THE [employer] CHART. IT IS NOT A COPY OF THE [employer] PROGRESS NOTE. CATARINA
== END ==
LOC: M PAIN 13:45
PROVIDERS: ATTEND Nurse Practitioner Family
DX: Q79.6 Ehlers-Danlos syndromes (principal); M79.606 Pain in leg, unspecified; M54.5 Low back pain; Z86.59 Personal history of other mental and behavioral disorders; F17.210 Nicotine dependence, cigarettes, uncomplicated; J45.909 Unspecified asthma, uncomplicated; D64.9 Anemia, unspecified; Z88.0 Allergy status to penicillin; Z88.1 Allergy status to other antibiotic agents; Z88.6 Allergy status to analgesic agent; Z88.8 Allergy status to other drugs, medicaments and biological substances; Z79.891 Long term (current) use of opiate analgesic; Z79.899 Other long term (current) drug therapy

== ENCOUNTER 2018-10-21 11:47 | Emergency (ER) | payer MEDICAID, OTHER ==
[~2018-10-21] VITALS: Ht 170.2 cm; Wt 54.4 kg
[~2018-10-21 11:47] MED LIST changes: -/ESOM40CA PO; +LAMO100T80 PO; -LAMO10TA PO; +NEXI1CAP3 PO; +SERT-141 PO; -SERT50TA PO
[2018-10-21 11:48] VITALS: BP 115/74
[2018-10-21] MEDS ORDERED: CYCL5TAB (11:53)
[2018-10-21] MEDS ORDERED: TRAM50TA2 (11:53)
[2018-10-21] MEDS ORDERED: ACET-683 PO (13:03)
[2018-10-21] MEDS ORDERED: PROAAER10 INH (13:03)
[2018-10-21] MEDS ORDERED: MUCI1TAB16 PO (13:04)
[2018-10-21] MEDS ORDERED: AEROMIS17 XX (13:06)
== END 2018-10-21 13:15 | disposition home or self-care (01) ==
LOC: M ED 11:47
DX: J45.909 Unspecified asthma, uncomplicated (principal); J06.9 Acute upper respiratory infection, unspecified; K21.9 Gastro-esophageal reflux disease without esophagitis; F31.9 Bipolar disorder, unspecified; Z88.0 Allergy status to penicillin; Z88.8 Allergy status to other drugs, medicaments and biological substances; F17.210 Nicotine dependence, cigarettes, uncomplicated

== ENCOUNTER → 2018-12-06 | Outpatient (CLI) | payer OTHER, MEDICAID ==
[~2018-12-06] MED LIST changes: +ACET-683 PO; +AEROMIS17 XX; +CYCL5TAB; +MUCI1TAB16 PO; +PROAAER10 INH; +TRAM50TA2
--- NOTE | 2018-12-21 00:46 | ECWPNPC ---
PATIENT NAME: LORA POSADA : 1975 GENDER: FEMALE VISIT DATE: 12/06/2018 DISCHARGE DATE: 12/06/18 1745 VISIT LOCKED DATE TIME: PHYSICIAN: JACEK ESTRADA MD RESOURCE: JACEK ESTRADA MD REASON FOR APPOINTMENT 1. HIP HISTORY OF PRESENT ILLNESS HISTORY OF PRESENT ILLNESS: PAIN THE PATIENT DESCRIBES THE PAIN... 43 YEAR OLD FEMALE PATIENT WITH A HISTORY OF CHRONIC LOW BACK PAIN. THE PATIENT DESCRIBES THE PAIN ACHING, STABBING, SHOOTING, SHARP, NIGHTLY, AND INTERMITTENT WITH A PAIN SCORE OF 5-8/10 DEPENDING ON PHYSICAL ACTIVITY. THE PATIENT STATES HER PAIN BEGINS IN HER LOW BACK AND RADIATES DOWN BOTH LEGS. THE PATIENT SAYS SHE HAS BEEN SUFFERING FROM THIS PAIN FOR MANY YEARS. THE PATIENT SAYS SHE HAS USED GABAPENTIN BEFORE AND IT DID NOT PROVIDE MUCH PAIN RELIEF FOR HER. PATIENT DENIES UNEXPLAINABLE WEIGHT LOSS, FEVER, CHILLS, NEW CHANGES ON HER URINARY OR BOWEL CONTROL. FALL RISK SCREENING: SCREENING :NO FALLS REPORTED IN THE LAST YEAR CURRENT MEDICATIONS TAKING VITAMIN B12 100 MCG TABLET ORALLY TAKING VITAMIN C 250 MG TABLET CHEWABLE 1 TABLET ORALLY ONCE A DAY TAKING MULTIVITAMIN/MINERALS 27-1 MG CAPSULE 1 TAB ORALLY DAILY TAKING CYCLOBENZAPRINE HCL 5 MG TABLET 1 TABLET NEEDED ORALLY TWICE A DAY TAKING TRAMADOL HCL 50 MG TABLET 1-2 TABLET ORALLY EVERY 6 HRS PRN PAIN MDD=6 TAKING RANITIDINE 150 MAX STRENGTH 150 MG TABLET 1 TABLET AT BEDTIME ORALLY BID TAKING BECLOMETHASONE DIPROP HFA 80 MCG/ACT AEROSOL BREATH ACTIVATED 1 PUFF INHALATION BID NOT-TAKING METHOCARBAMOL 500 MG TABLET 1 TABLET ORALLY BID UNKNOWN ZOLPIDEM TARTRATE 10 MG TABLET 1 TABLET AT BEDTIME NEEDED ORALLY ONCE A DAY UNKNOWN MONTELUKAST SODIUM 10 MG TABLET 1 TABLET IN THE EVENING ORALLY AT BEDTIME UNKNOWN PROAIR HFA 108 (90 BASE) MCG/ACT AEROSOL SOLUTION 1-2 PUFFS NEEDED INHALATION EVERY 4-6 HRS UNKNOWN ADVAIR DISKUS 500-50 MCG/DOSE AEROSOL POWDER BREATH ACTIVATED 1 PUFF INHALATION TWICE A DAY UNKNOWN LATUDA TABLET 1 TAB ORALLY ONCE A DAY AT BEDTIME UNKNOWN COLACE 100 MG CAPSULE 1 CAPSULE ORALLY TWICE A DAY UNKNOWN NICODERM CQ 21 MG/24HR PATCH 24 HOUR 1 PATCH TO SKIN TRANSDERMAL ONCE A DAY UNKNOWN AMBIEN 10 MG TABLET 1 TABLET AT BEDTIME NEEDED ORALLY ONCE A DAY UNKNOWN VALIUM 2 MG TABLET 1 TABLET NEEDED ORALLY THREE TIMES A DAY UNKNOWN SEROQUEL [address] HANCOCK ORALLY AT BEDTIME UNKNOWN NEXIUM 40 MG CAPSULE DELAYED RELEASE 1 CAPSULE ORALLY ONCE A DAY UNKNOWN PERPHENAZINE-AMITRIPTYLINE 2-10 MG TABLET 1 TABLET ORALLY TWICE A DAY UNKNOWN COLACE 100 MG CAPSULE 2 CAPSULE NEEDED ORALLY TWICE DAILY UNKNOWN SENNA S 8.6-50 MG TABLET 2 TABLETS IN THE EVENING NEEDED ORALLY AT BEDTIME UNKNOWN IBUPROFEN 800 MG TABLET 1 TABLET ORALLY TWICE DAILY UNKNOWN IBUPROFEN 800 MG TABLET 1 TABLET ORALLY TWICE DAILY UNKNOWN BACLOFEN 10 MG TABLET 1 TABLET WITH FOOD OR MILK ORALLY TWICE DAILY MEDICATION LIST REVIEWED AND RECONCILED WITH THE PATIENT PAST MEDICAL HISTORY RIGHT LEG CHRONIC PAIN FROM SEVERE LACERATION AT AGE 13 ANXIETY AND DEPRESSION TOBACCO ABUSE ASTHMA IBS LEARNING DISORDER GERD ANEMIA CHRONIC FATIGUE SYNDROME HYPER MOTOR SPASM SYNDROME ALLERGIES GABAPENTIN: PALPITATIONS - ALLERGY PENICILLIN (FOR ALLERGIES USE ONLY): VOMITING - ALLERGY MOBIC: DIARRHEA - ALLERGY AMOXICILLIN: VOMITING - ALLERGY NICODERM PATCH: RASH - ALLERGY SURGICAL HISTORY PARTIAL HYSTERECTOMY 2004 D AND C 2004 FAMILY HISTORY MATERNAL GRAND MOTHER: BREAST CANCER HTN: FATHER, SISTER\NHYPOTHYROIDISM SISTER\NASTHMA, COPD MOTHER\NDM GRANDMOTHER\NCANCER: BREAST AUNTS, GRANDMOTHER. SOCIAL HISTORY GENERAL: TOBACCO USE ARE YOU A:CURRENT SMOKER ARE YOU INTERESTED IN QUITTING?THINKING ABOUT QUITTING STATES TRYING TO QUIT, WANTS PATCHES PREVIOUS QUIT ATTEMPTS?YES, MORE THAN 6 MONTHS AGO. COUNSELED THE PATIENT ON SMOKING CESSATION, EDUCATION [id number]/29/2018 HOW MANY CIGARETTES A DAY DO YOU SMOKE?6-10 HOW SOON AFTER YOU WAKE UP DO YOU SMOKE YOUR FIRST CIGARETTE?WITHIN 5 MIN HOW OFTEN DO YOU SMOKE CIGARETTES?EVERY DAY PATIENT COUNSELED ON THE DANGERS OF TOBACCO USE AND URGED TO QUIT:12/06/2018 COUNCELED ON THE IMPORTANCE OF QUITTING. VAPORYES STARTED 04/08/17 TO HELP HER QUIT SMOKING. AD PAIN CLINIC PFS, CLERGY, PUBLIC HEALTH REFERRALS WAS THE PROVIDER NOTIFIED OF ANY PERTINENT INFO?YES HAS THE PATIENT BEEN EDUCATED REGARDING HIS/HER PLAN OF CARE?YES HAS THE PATIENT BEEN EDUCATED REGARDING PAIN, THE RISK FOR PAIN, THE IMPORTANCE OF EFFECTIVE PAIN MANAGEMENT, AND THE PAIN ASSESSMENT PROCESS?YES LATEX QUESTIONNAIRE LATEX ALLERGY : HAVE YOU EVER DEVELOPED ANY TYPE OF REACTION AFTER HANDLING LATEX PRODUCTS SUCH RUBBER GLOVES, CONDOMS, DIAPHRAGMS, BALLOONS, SOCKS, OR UNDERWEAR?NO LATEX ALLERGY : HAVE YOU EVER DEVELOPED ANY TYPE OF REACTION DURING OR AFTER DENTAL APPOINTMENT, VAGINAL/RECTAL EXAMINATION, SURGICAL PROCEDURE, OR ANY OTHER EXPOSURE?NO LATEX RISK : HAVE YOU EVER HAD ANY DIFFICULTY BREATHING OR HIVES AFTER EATING OR HANDLING ANY FRUITS, OR VEGETABLES; SUCH KIWI, BANANAS, STONE FRUITS, OR CHESTNUTSNO LATEX RISK : DO YOU HAVE A PREVIOUS PERSONAL HISTORY OF MORE THAN NINE SURGERIES, SPINA BIFIDA, OR REPEATED CATHERIZATIONS? NO LATEX RISK : ARE YOU FREQUENTLY EXPOSED TO LATEX PRODUCTS IN YOUR OCCUPATION?NO DATE ASKED : 07/27/2018 ADVANCE DIRECTIVE ADVANCE DIRECTIVE DISCUSSED WITH PATIENT:YES DECLINED INFORMATION TAOISM [id number] OTHER NO ANABAPTIST BELIEFS THAT WOULD IMPACT HEALTH CARE. LANGUAGE LANGUAGES SPOKEN:CAMEROONIAN NEW PATIENT PAIN DIARY TODAY'S VISITNOTES FROM 0-10, WHAT LEVEL IS YOUR PAIN TODAY?6 ALCOHOL SCREENING DID YOU HAVE A DRINK CONTAINING ALCOHOL IN THE PAST YEAR?NO POINTS0 INTERPRETATIONNEGATIVE RECREATIONAL DRUG USE DRUG USE?NO LEARNING BARRIERS / SPECIAL NEEDS ORIENTED TO PLAN OF CARE: PATIENT, PAIN MANAGEMENT PATIENT, ORIENTED TO PLAN OF CARE: PATIENT, PAIN MANAGEMENT PATIENT. REVIEWED WITH PATIENT 03/06/18 0935 JS. HOSPITALIZATION/MAJOR DIAGNOSTIC PROCEDURE INPATIENT MENTAL HEALTH DUE TO DEPRESSION 2004 RIGHT LEG SURGERY 1988 REVIEW OF SYSTEMS REVIEWED BY: PROVIDER: JACEK ESTRADA MD . CONSTITUTIONAL: ANY CHANGE IN YOUR MEDICAL CONDITION? NO . CHILLS NO . FEVER NO . INFECTION: DO YOU HAVE NEW INFECTIONS? NO . DO YOU HAVE HISTORY OF MRSA? NO . MUSCULOSKELETAL: ANY NEW PATTERNS OF PAIN OR NUMBNESS? YES PAIN IS NOT CONTROLLED WELL WITH TRAMADOL . GASTROENTEROLOGY: ANY NEW CHANGE IN BOWEL CONTROL? NO . GENITOURINARY: ANY NEW CHANGE IN BLADDER CONTROL? NO . IS THERE A CHANCE YOU COULD BE ? NO . HEMATOLOGY/LYMPH: DO YOU TAKE ANY BLOOD THINNERS? (FOR EXAMPLE- COUMADIN, PLAVIX, AGGRENOX, PLATEL, PRADAXA, OR XARELTO) NO . WHEN WAS YOUR LAST DOSE? DATE: TIME: . NEUROLOGY: HAVE YOU FALLEN IN THE PAST 12 MONTHS? NO . ANY NEW EXTREMITY NUMBNESS OR WEAKNESS? NO . CARDIOLOGY: DO YOU HAVE A PACEMAKER OR DEFIBRILLATOR? NO . RESPIRATORY: HAVE YOU BEEN SICK IN THE PAST WEEK? NO . FEVER NO . FLU LIKE SYMPTOMS? NO . COUGH NO . INTEGUMENTARY: DO YOU HAVE ANY RASHES OR OPEN SORES? NO . ALLERGIC/IMMUNO: ARE YOU ALLERGIC TO IV DYE? NO . ANY NEW ALLERGIES? NO . PSYCHIATRIC: DO YOU HAVE THOUGHTS OF HURTING YOURSELF OR SOMEONE ELSE? NO . ARE YOU ABUSED, NEGLECTED, OR IN AN UNSAFE ENVIRONMENT? NO . ENDOCRINOLOGY: ARE YOU DIABETIC? NO . OTHER: DO YOU NEED ANY PRESCRIPTIONS? NO . IF YES, PLEASE LIST: ____ . ANY NEW PROBLEMS WITH YOUR MEDICATIONS? NO . WHEN DID YOU LAST EAT? ____ . WHEN DID YOU LAST DRINK? ____ . WHAT DID YOU LAST DRINK? ____ . NAME OF PERSON DRIVING YOU HOME? ____ . DO YOU HAVE ANY OTHER QUESTIONS OR CONCERNS NO . VITAL SIGNS WT 125.4 LBS, HT 67 IN, BMI 19.64 INDEX, BP 118/74 MM HG, HR 111 /MIN, RR 18 /MIN, TEMP 96.2 F, OXYGEN SAT % 99%, NA INITIALS AW 1539, REVIEWED BY: KG. EXAMINATION GENERAL EXAMINATION: PATIENT IS ALERT O X 3 AND COOPERATIVE. TENDERNESS IN THE LOW BACK. PRESENCE OF BANDS OF TISSUE AND TRIGGER POINTS WITH RESTRICTION OF MOVEMENT OF THE LOW BACK. BOTH LEGS ARE WEAKER AT EXTENSION AND FLEXION. EMG DONE ON 08/10/2013 SHOWS NORMAL NERVE CONDUCTION STUDY OF BILATERAL LOWER EXTREMITIES. MRI OF THE RIGHT HIP DONE ON 07/16/2013 SHOWS NEGATIVE MRI STUDY OF THE RIGHT HIP. 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 POSADA'S PAIN MANAGEMENT CASE. I WILL START THE PATIENT ON TIZANIDINE 2 MG NEEDED TO HELP WITH PAIN AND SPASMS. THE PATIENT WILL STOP CYCLOBENZAPRINE 5 MG. THE PATIENT BROUGHT HER MEDICATIONS IN THEIR ORIGINAL BOTTLES TO TODAY'S VISIT AND WAS ADVISED TO USE THE LEAST AMOUNT OF DOSAGE OF TRAMADOL. I AM REFERRING THE PATIENT TO [facility]'S PALLIATIVE CARE PROGRAM TO CONTINUE HER MEDICATION MANAGEMENT CARE. THE PATIENT WILL FOLLOW UP WITH NURSE PRACTITIONER JEREMY IN SEVERAL WEEKS. INSTRUCTIONS WERE GIVEN, QUESTIONS WERE ANSWERED, PATIENT REPORTS UNDERSTANDING AND AGREES WITH THE PLAN. I, FLO MANCUSO, DOCUMENTED THE ABOVE INFORMATION ACTING A SCRIBE FOR DR. ESTRADA. I HAVE REVIEWED THE ABOVE DOCUMENT, WRITTEN BY FLO POLOIBPauly AND I VERIFY THAT IT IS ACCURATE. . OTHERS START TIZANIDINE HCL TABLET, 2 MG, 1 TABLET NEEDED, ORALLY FOR SPASMS AND PAIN, EVERY 8 HOURS NEEDED MDD3, 30 DAYS, 75, REFILLS 1 PROCEDURE CODES G8427 CURRENT MEDS W/DOSAGES DOCUMENTED G8730 PAIN ASSESS POS TOOL F/U PLAN DOC FA211 ESTABILISHED PATIENT [facility] CHARGE DISPOSITION & COMMUNICATION FOLLOW UP 4 WEEKS (REASON: F/U WITH DORINDA LUNA, REFER TO PALIATIVE CARE) ELECTRONICALLY SIGNED BY JACEK ESTRADA MD, ON 12/20/2018 AT 11:59 AM EDT DISCLAIMER : THIS IS A VISIT SUMMARY EXTRACTED FROM THE [employer] CHART. IT IS NOT A COPY OF THE [employer] PROGRESS NOTE. AVERYD
== END ==
LOC: M PAIN 15:30
PROVIDERS: ATTEND Anesthesiology
DX: M79.18 Myalgia, other site (principal); M54.42 Lumbago with sciatica, left side; M54.41 Lumbago with sciatica, right side; G89.29 Other chronic pain; M79.604 Pain in right leg; M79.605 Pain in left leg; Q79.6 Ehlers-Danlos syndromes; Z86.59 Personal history of other mental and behavioral disorders; J45.909 Unspecified asthma, uncomplicated; F17.210 Nicotine dependence, cigarettes, uncomplicated; Z88.0 Allergy status to penicillin; Z88.1 Allergy status to other antibiotic agents; Z88.5 Allergy status to narcotic agent; Z88.8 Allergy status to other drugs, medicaments and biological substances; Z79.891 Long term (current) use of opiate analgesic; Z79.899 Other long term (current) drug therapy

== ENCOUNTER → 2019-02-12 | Outpatient (CLI) | payer OTHER, MEDICAID | LOC: M PAIN 13:30 | PROVIDERS: ATTEND Family Medicine | DX: M54.42 Lumbago with sciatica, left side (principal); M54.41 Lumbago with sciatica, right side; G89.29 Other chronic pain; Z86.59 Personal history of other mental and behavioral disorders; J45.909 Unspecified asthma, uncomplicated; Z88.0 Allergy status to penicillin; Z88.1 Allergy status to other antibiotic agents; Z88.6 Allergy status to analgesic agent; Z88.8 Allergy status to other drugs, medicaments and biological substances; Z79.891 Long term (current) use of opiate analgesic; Z79.899 Other long term (current) drug therapy ==

== ENCOUNTER → 2019-05-07 | Outpatient (CLI) | payer OTHER, MEDICAID ==
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
== END ==
LOC: M PAIN 11:00
PROVIDERS: ATTEND Family Medicine
DX: M54.42 Lumbago with sciatica, left side (principal); M54.41 Lumbago with sciatica, right side; Z79.891 Long term (current) use of opiate analgesic

== ENCOUNTER → 2020-03-31 | Outpatient (CLI) | payer OTHER, MEDICAID ==
[~2020-03-31] MED LIST changes: +MONT10TA4 PO; -TRAZ-163 PO; +TRAZ-257 PO
--- NOTE | 2020-04-02 01:29 | ECWPNPC ---
PATIENT NAME: LORA POSADA : 1975 GENDER: FEMALE VISIT DATE: 03/31/2020 DISCHARGE DATE: 03/31/20 1413 VISIT LOCKED DATE TIME: PHYSICIAN: SHYLA MONCADA PHYSICIAN PAGER NO: ACTIVE RESOURCE: SHYLA MONCADA REASON FOR APPOINTMENT 1. CHRONIC PAIN -PREVIOUS PATIENT HAS NOT BEEN SEEN IN ALMOST A YEAR. HISTORY OF PRESENT ILLNESS GENERAL: - 44-YEAR-OLD FEMALE IN FOR CHRONIC PAIN FOLLOW-UP. PATIENT HAS NOT BEEN SEEN IN THIS CLINIC IN SEVERAL MONTHS. SHE WAS PREVIOUSLY ON TRAMADOL AND DOES ADMIT TODAY THAT THIS WAS BENEFICIAL IN MANAGING HER PAIN SYMPTOMS. SHE RATES HER PAIN CURRENTLY AT AN 8 OUT OF 10 AND DESCRIBES IT CONTINUOUS, SHARP, SORE, AND SHOOTING. FALL RISK SCREENING: SCREENING :TWO OR MORE FALLS WITHOUT INJURY IN THE PAST YEAR LEGS GAVE OUT 3 TIMES LAST WEEK PAIN SCREENING: PATIENT HAS A COMPLAINT OF ACUTE OR CHRONIC PAIN :YES LOCATION OF PAIN:LEG(S) INTENSITY OF PAIN (SCALE OF 1 TO 10):8 WHAT DOES YOUR PAIN FEEL LIKE:CONTINOUS, SHARP, SORE, SHOOTING DURATION:CONSTANT, STEADY PAIN IS INCREASED BY:ACTIVITIES, PROLONGED STANDING PAIN IS DECREASED BY:SITTING NURSING NOTE: -. PAIN CENTER INTAKE QUESTIONS: DO YOU HAVE A HISTORY OF MRSA? :NO DO YOU TAKE A BLOOD THINNERS? :NO DO YOU HAVE ANY BLEEDING DISORDERS? :NO ANY NEW NUMBNESS OR WEAKNESS IN YOUR LEGS OR ARMS? :NO ANY PACEMAKER,DEFIBRILLATOR, OR DORSAL COLUMN STIMULATOR? :NO DO YOU HAVE ANY RASHES OR OPEN SORES? :NO ARE YOU ALLERGIC TO IV DYE? :NO ARE YOU DIABETIC? :NO ANY NEW PROBLEMS WITH YOUR MEDICATIONS? :NO HAVE YOU RECEIVED A VACCINE IN THE PAST 30 DAYS? :NO DO YOU PLAN TO RECEIVE A VACCINE IN THE NEXT 21 DAYS? :NO DO YOU NEED ANY PRESCRIPTION? :NO DO YOU TAKE ANY IMMUNOSUPPRESSIVE MEDICATIONS? :NO IS THERE A CHANCE YOU COULD BE ? :NO ARE YOU BREAST FEEDING? :NO CURRENT MEDICATIONS TAKING BECLOMETHASONE DIPROP HFA 80 MCG/ACT AEROSOL BREATH ACTIVATED 1 PUFF INHALATION BID TAKING BUSPIRONE HCL 10 MG TABLET 1 TABLET ORALLY TWICE A DAY TAKING DICLOFENAC SODIUM 50 MG TABLET DELAYED RELEASE 1 TABLET ORALLY THREE TIMES A DAY NEEDED TAKING HYDROXYZINE HCL 25 MG TABLET TAKE ONE TO TWO TABLETS BY MOUTH EVERY 6 HOURS NEEDED FOR ANXIETY ORAL TAKING BUPROPION HCL ER (SMOKING DET) 150 MG TABLET EXTENDED RELEASE 12 HOUR 1 TABLET IN THE MORNING ORALLY ONCE A DAY MEDICATION LIST REVIEWED AND RECONCILED WITH THE PATIENT PAST MEDICAL HISTORY RIGHT LEG CHRONIC PAIN FROM SEVERE LACERATION AT AGE 13 ANXIETY AND DEPRESSION TOBACCO ABUSE ASTHMA IBS LEARNING DISORDER GERD ANEMIA CHRONIC FATIGUE SYNDROME HYPER MOTOR SPASM SYNDROME ALLERGIES GABAPENTIN: PALPITATIONS - ALLERGY PENICILLIN (FOR ALLERGIES USE ONLY): VOMITING - ALLERGY MOBIC: DIARRHEA - ALLERGY AMOXICILLIN: VOMITING - ALLERGY NICODERM PATCH: RASH - ALLERGY SURGICAL HISTORY PARTIAL HYSTERECTOMY 2004 D AND C 2004 FAMILY HISTORY FATHER: ALIVE 66 YRS, HTN MOTHER: 65 YRS, DVT, DM2, HTN, THYROID DISEASE SIBLINGS: ALIVE 45 YRS, SISTER - HTN, THYROID DISEASE SON(S): ALIVE, GABINO MCCARTHY - 1992 - MDS, ?EDS JOSE - HEALTHY DAUGHTER(S): ALIVE, ANKIT - SCOLIOSIS MARINE - ESTRANGED MATERNAL GRAND MOTHER: BREAST CANCER 1 SISTER(S) . 2 SON(S) , 2 DAUGHTER(S) . SOCIAL HISTORY GENERAL: TOBACCO USE ARE YOU A:CURRENT SMOKER ARE YOU INTERESTED IN QUITTING?THINKING ABOUT QUITTING STATES TRYING TO QUIT, WANTS PATCHES PREVIOUS QUIT ATTEMPTS?YES, MORE THAN 6 MONTHS AGO. COUNSELED THE PATIENT ON SMOKING CESSATION, EDUCATION [id number]/23/2020 HOW MANY CIGARETTES A DAY DO YOU SMOKE?6-10 HOW SOON AFTER YOU WAKE UP DO YOU SMOKE YOUR FIRST CIGARETTE?WITHIN 5 MIN HOW OFTEN DO YOU SMOKE CIGARETTES?EVERY DAY PATIENT COUNSELED ON THE DANGERS OF TOBACCO USE AND URGED TO QUIT:03/31/2020 COUNCELED ON THE IMPORTANCE OF QUITTING. [facility]3] LATEX QUESTIONNAIRE LATEX ALLERGY : HAVE YOU EVER DEVELOPED ANY TYPE OF REACTION AFTER HANDLING LATEX PRODUCTS SUCH RUBBER GLOVES, CONDOMS, DIAPHRAGMS, BALLOONS, SOCKS, OR UNDERWEAR?NO LATEX ALLERGY : HAVE YOU EVER DEVELOPED ANY TYPE OF REACTION DURING OR AFTER DENTAL APPOINTMENT, VAGINAL/RECTAL EXAMINATION, SURGICAL PROCEDURE, OR ANY OTHER EXPOSURE?NO LATEX RISK : HAVE YOU EVER HAD ANY DIFFICULTY BREATHING OR HIVES AFTER EATING OR HANDLING ANY FRUITS, OR VEGETABLES; SUCH KIWI, BANANAS, STONE FRUITS, OR CHESTNUTSNO LATEX RISK : DO YOU HAVE A PREVIOUS PERSONAL HISTORY OF MORE THAN NINE SURGERIES, SPINA BIFIDA, OR REPEATED CATHERIZATIONS? NO LATEX RISK : ARE YOU FREQUENTLY EXPOSED TO LATEX PRODUCTS IN YOUR OCCUPATION?NO DATE ASKED : 03/31/2020 ALCOHOL SCREENING DID YOU HAVE A DRINK CONTAINING ALCOHOL IN THE PAST YEAR?NO POINTS0 INTERPRETATIONNEGATIVE RECREATIONAL DRUG USE DRUG USE?NO SABIANISM [id number] OTHER NO CONFUCIANIST BELIEFS THAT WOULD IMPACT HEALTH CARE. LANGUAGE LANGUAGES SPOKEN:FRENCH LEARNING BARRIERS / SPECIAL NEEDS ORIENTED TO PLAN OF CARE: PATIENT, PAIN MANAGEMENT PATIENT, ORIENTED TO PLAN OF CARE: PATIENT, PAIN MANAGEMENT PATIENT. 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 MARITAL STATUS: 2008, [place]. OTHERS AT HOME: SPOUSE. TODAY'S VISITNOTES FROM 0-10, WHAT LEVEL IS YOUR PAIN TODAY?6 PAIN CLINIC PFS, CLERGY, PUBLIC HEALTH REFERRALS WAS THE PROVIDER NOTIFIED OF ANY PERTINENT INFO?YES HAS THE PATIENT BEEN EDUCATED REGARDING HIS/HER PLAN OF CARE?YES HAS THE PATIENT BEEN EDUCATED REGARDING PAIN, THE RISK FOR PAIN, THE IMPORTANCE OF EFFECTIVE PAIN MANAGEMENT, AND THE PAIN ASSESSMENT PROCESS?YES ADVANCE DIRECTIVE ADVANCE DIRECTIVE DISCUSSED WITH PATIENT:YES DECLINED INFORMATION HOSPITALIZATION/MAJOR DIAGNOSTIC PROCEDURE INPATIENT MENTAL HEALTH DUE TO DEPRESSION 2004 RIGHT LEG SURGERY 1988 REVIEW OF SYSTEMS CONSTITUTIONAL: ANY RECENT FEVER NO . CHILLS NO . WEIGHT CHANGE OF UNKNOWN REASONS NO . GASTROENTEROLOGY: NEW UNEXPLAINABLE CHANGES IN BOWEL CONTROL NO . CONSTIPATION NO . GENITOURINARY: ANY NEW CHANGE IN BLADDER CONTROL? NO . NEUROLOGY: NEW ONSET DIZZINESS OR NEUROLOGICAL CHANGES NOT MENTIONED NO . NEW NUMBNESS OR PAIN PATTERNS NOT MENTIONED AND PERTINENT TO TODAY'S VISIT NO . CARDIOLOGY: NEW CHEST PRESSURE NO . NEW CHEST PAIN NO . RESPIRATORY: UNEXPLAINABLE COUGH NO . NEW SHORTNESS OF BREATH NO . VITAL SIGNS WT 116.4 LBS, HT 67 IN, BMI 18.23 INDEX, BP 114/78 MM HG, HR 87 /MIN, RR 20 /MIN, TEMP 98.6 F, OXYGEN SAT % 99%, NA INITIALS SC 13:12. EXAMINATION GENERAL EXAMINATION: GENERALNO ACUTE DISTRESS, WELL NOURISHED AND HYDRATED. PSYCHAPPROPRIATE MOOD AND AFFECT . LUNGS:CLEAR TO AUSCULTATION BILATERALLY, NO WHEEZES, RHONCHI, RALES. HEART:NO MURMURS, REGULAR RATE AND RHYTHM. ASSESSMENTS LUMBAGO WITH SCIATICA, LEFT SIDE - M54.42 (PRIMARY) LUMBAGO WITH SCIATICA, RIGHT SIDE - M54.41 TREATMENT LUMBAGO WITH SCIATICA, LEFT SIDE START TRAMADOL HCL TABLET, 50 MG, 1 TABLET NEEDED, ORALLY, TWICE DAILY NEEDED, 30 DAYS, 60 START CYCLOBENZAPRINE HCL TABLET, 10 MG, 1 TABLET AT BEDTIME NEEDED, ORALLY, THREE TIMES DAILY NEEDED, 30 DAY(S), 90 NOTES: 44-YEAR-OLD FEMALE PATIENT IN FOR CHRONIC PAIN FOLLOW-UP. GIVEN PRESENTING SYMPTOMS RECOMMEND RESTARTING TRAMADOL AND CYCLOBENZAPRINE WITH FOLLOW-UP IN 3 MONTHS. PATIENT HAS EXPRESSED UNDERSTANDING OF AND WAS IN AGREEMENT WITH TREATMENT PLAN. GIVEN TIME TO ASK QUESTIONS AND EXPRESS CONCERNS. , ISTOP REGISTRY REVIEWED AND DEMONSTRATES COMPLLIANCE. (REF # [id number] ) BRINGS IN MEDICATIONS WHICH IS APPROPRIATE FOR WHAT WAS DISPENSED. RECENT URINE TOXICOLOGY REVIEWED. NO UNAUTHORIZED MEDICATIONS. NO ILLICIT SUBSTANCES AND PRESCRIBED MEDICATIONS WERE PRESENT. PROCEDURE CODES FA211 ESTABILISHED PATIENT [facility] CHARGE DISPOSITION & COMMUNICATION FOLLOW UP 3 MONTHS (REASON: BACK PAIN) ELECTRONICALLY SIGNED BY NAJMA WATTERS ON 04/01/2020 AT 09:33 AM EST DISCLAIMER : THIS IS A VISIT SUMMARY EXTRACTED FROM THE [employer] CHART. IT IS NOT A COPY OF THE [employer] PROGRESS NOTE. [place]
== END ==
LOC: M PAIN 13:00
PROVIDERS: ATTEND Family Medicine
DX: M54.42 Lumbago with sciatica, left side (principal); M54.41 Lumbago with sciatica, right side; G89.29 Other chronic pain; J45.909 Unspecified asthma, uncomplicated; F17.210 Nicotine dependence, cigarettes, uncomplicated; Z86.59 Personal history of other mental and behavioral disorders; Z88.0 Allergy status to penicillin; Z88.1 Allergy status to other antibiotic agents; Z88.6 Allergy status to analgesic agent; Z88.8 Allergy status to other drugs, medicaments and biological substances; Z79.899 Other long term (current) drug therapy

== ENCOUNTER → 2020-09-26 | Outpatient (CLI) | payer OTHER, MEDICAID ==
[~2020-09-26] MED LIST changes: +MONT10TA10 PO; -MONT10TA4 PO; -QUET1TAB7 PO; +QUET25TA3 PO
== END ==
LOC: M LABSMTC 13:19
PROVIDERS: ATTEND Pediatrics
DX: Z11.52 Encounter for screening for COVID-19 (principal)

== ENCOUNTER → 2020-09-29 | Outpatient (CLI) | payer OTHER, MEDICAID ==
--- NOTE | 2020-10-01 00:47 | ECWPNPC ---
PATIENT NAME: LORA POSADA : 1975 GENDER: FEMALE VISIT DATE: 09/29/2020 DISCHARGE DATE: 09/29/20 1215 VISIT LOCKED DATE TIME: PHYSICIAN: SHYLA MONCADA PHYSICIAN PAGER NO: ACTIVE RESOURCE: SHYLA MONCADA REASON FOR APPOINTMENT 1. BACK/MED MNGMT HISTORY OF PRESENT ILLNESS GENERAL: HPI 45-YEAR-OLD FEMALE IN FOR CHRONIC PAIN FOLLOW-UP. SHE RATES HER PAIN CURRENTLY AT AN 8 OUT OF 10 AND DESCRIBES IT ACHING AND STABBING. SHE DOES FEEL THE MEDICATIONS ARE HELPFUL HOWEVER ADMITS THAT IT DOES NOT COVERING HER PAIN AT TIMES.. -. FALL RISK SCREENING: SCREENING : ONE FALL REPORTED IN THE LAST YEAR WITHOUT INJURY. PAIN SCREENING: PATIENT HAS A COMPLAINT OF ACUTE OR CHRONIC PAIN :YES LOCATION OF PAIN: WHOLE BODY INTENSITY OF PAIN (SCALE OF 1 TO 10):8 WHAT DOES YOUR PAIN FEEL LIKE:ACHING, STABBING DURATION:CONTINOUS PAIN IS INCREASED BY:ACTIVITIES PAIN IS DECREASED BY:USE OF PAIN MEDICATIONS NURSING NOTE: -. PAIN CENTER INTAKE QUESTIONS: DO YOU HAVE A HISTORY OF MRSA? :NO DO YOU TAKE A BLOOD THINNERS? :NO DO YOU HAVE ANY BLEEDING DISORDERS? :NO ANY NEW NUMBNESS OR WEAKNESS IN YOUR LEGS OR ARMS? :NO ANY PACEMAKER,DEFIBRILLATOR, OR DORSAL COLUMN STIMULATOR? :NO DO YOU HAVE ANY RASHES OR OPEN SORES? :NO ARE YOU ALLERGIC TO IV DYE? :NO ARE YOU DIABETIC? :NO ANY NEW PROBLEMS WITH YOUR MEDICATIONS? :NO HAVE YOU RECEIVED A VACCINE IN THE PAST 30 DAYS? :YES IF SO WHAT VACCINE AND WHEN? COVID #1 09/19/20 [facility] DO YOU PLAN TO RECEIVE A VACCINE IN THE NEXT 21 DAYS? :YES IF SO WHAT VACCINE AND WHEN? #2 COVID MODERNA 10/20/20 @ [facility] DO YOU NEED ANY PRESCRIPTION? :YES TRAMADOL, CYCLOBENZAPRINE DO YOU TAKE ANY IMMUNOSUPPRESSIVE MEDICATIONS? :NO DO YOU HAVE ANY KIDNEY OR LIVER DISEASE? :NO IS THERE A CHANCE YOU COULD BE ? :NO ARE YOU BREAST FEEDING? :NO CURRENT MEDICATIONS TAKING TRAMADOL HCL 50 MG TABLET 1 TABLET NEEDED ORALLY TWICE DAILY NEEDED TAKING CYCLOBENZAPRINE HCL 10 MG TABLET 1 TABLET AT BEDTIME NEEDED ORALLY THREE TIMES DAILY NEEDED NOT-TAKING BECLOMETHASONE DIPROP HFA 80 MCG/ACT AEROSOL BREATH ACTIVATED 1 PUFF INHALATION BID NOT-TAKING BUSPIRONE HCL 10 MG TABLET 1 TABLET ORALLY TWICE A DAY NOT-TAKING DICLOFENAC SODIUM 50 MG TABLET DELAYED RELEASE 1 TABLET ORALLY THREE TIMES A DAY NEEDED NOT-TAKING HYDROXYZINE HCL 25 MG TABLET TAKE ONE TO TWO TABLETS BY MOUTH EVERY 6 HOURS NEEDED FOR ANXIETY ORAL NOT-TAKING BUPROPION HCL ER (SMOKING DET) 150 MG TABLET EXTENDED RELEASE 12 HOUR 1 TABLET IN THE MORNING ORALLY ONCE A DAY MEDICATION LIST REVIEWED AND RECONCILED WITH THE PATIENT PAST MEDICAL HISTORY RIGHT LEG CHRONIC PAIN FROM SEVERE LACERATION AT AGE 13 ANXIETY AND DEPRESSION TOBACCO ABUSE ASTHMA IBS LEARNING DISORDER GERD ANEMIA CHRONIC FATIGUE SYNDROME HYPER MOTOR SPASM SYNDROME ALLERGIES GABAPENTIN: PALPITATIONS - ALLERGY PENICILLIN (FOR ALLERGIES USE ONLY): VOMITING - ALLERGY MOBIC: DIARRHEA - ALLERGY AMOXICILLIN: VOMITING - ALLERGY NICODERM PATCH: RASH - ALLERGY SOCIAL HISTORY GENERAL: TOBACCO USE ARE YOU A:CURRENT SMOKER HOW OFTEN DO YOU SMOKE CIGARETTES?EVERY DAY HOW SOON AFTER YOU WAKE UP DO YOU SMOKE YOUR FIRST CIGARETTE?WITHIN 5 MIN HOW MANY CIGARETTES A DAY DO YOU SMOKE?6-10 ARE YOU INTERESTED IN QUITTING?THINKING ABOUT QUITTING STATES TRYING TO QUIT, WANTS PATCHES PATIENT COUNSELED ON THE DANGERS OF TOBACCO USE AND URGED TO QUIT:03/31/2020 COUNCELED ON THE IMPORTANCE OF QUITTING. COUNSELED THE PATIENT ON SMOKING CESSATION, EDUCATION [id number]/2020 VAPORYES PREVIOUS QUIT ATTEMPTS?YES, MORE THAN 6 MONTHS AGO. LATEX QUESTIONNAIRE LATEX ALLERGY : HAVE YOU EVER DEVELOPED ANY TYPE OF REACTION AFTER HANDLING LATEX PRODUCTS SUCH RUBBER GLOVES, CONDOMS, DIAPHRAGMS, BALLOONS, SOCKS, OR UNDERWEAR?NO LATEX ALLERGY : HAVE YOU EVER DEVELOPED ANY TYPE OF REACTION DURING OR AFTER DENTAL APPOINTMENT, VAGINAL/RECTAL EXAMINATION, SURGICAL PROCEDURE, OR ANY OTHER EXPOSURE?NO DATE ASKED : 03/31/2020 LATEX RISK : HAVE YOU EVER HAD ANY DIFFICULTY BREATHING OR HIVES AFTER EATING OR HANDLING ANY FRUITS, OR VEGETABLES; SUCH KIWI, BANANAS, STONE FRUITS, OR CHESTNUTSNO LATEX RISK : DO YOU HAVE A PREVIOUS PERSONAL HISTORY OF MORE THAN NINE SURGERIES, SPINA BIFIDA, OR REPEATED CATHERIZATIONS? NO LATEX RISK : ARE YOU FREQUENTLY EXPOSED TO LATEX PRODUCTS IN YOUR OCCUPATION?NO ALCOHOL SCREENING DID YOU HAVE A DRINK CONTAINING ALCOHOL IN THE PAST YEAR?NO POINTS0 INTERPRETATIONNEGATIVE RECREATIONAL DRUG USE DRUG USE?NO TEMPLE [id number] OTHER NO EPISCOPALIAN BELIEFS THAT WOULD IMPACT HEALTH CARE. LANGUAGE LANGUAGES SPOKEN:LITHUANIAN LEARNING BARRIERS / SPECIAL NEEDS ORIENTED TO PLAN OF CARE: PATIENT, PAIN MANAGEMENT PATIENT, ORIENTED TO PLAN OF CARE: PATIENT, PAIN MANAGEMENT PATIENT. 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 MARITAL STATUS: EVANGELINA Villalta. OTHERS AT HOME: SPOUSE. TODAY'S VISITNOTES FROM 0-10, WHAT LEVEL IS YOUR PAIN TODAY?6 - WAS THE PROVIDER NOTIFIED OF ANY PERTINENT INFO?YES HAS THE PATIENT BEEN EDUCATED REGARDING HIS/HER PLAN OF CARE?YES HAS THE PATIENT BEEN EDUCATED REGARDING PAIN, THE RISK FOR PAIN, THE IMPORTANCE OF EFFECTIVE PAIN MANAGEMENT, AND THE PAIN ASSESSMENT PROCESS?YES ADVANCE DIRECTIVE ADVANCE DIRECTIVE DISCUSSED WITH PATIENT:YES DECLINED INFORMATION REVIEW OF SYSTEMS CONSTITUTIONAL: ANY RECENT FEVER NO . CHILLS NO . WEIGHT CHANGE OF UNKNOWN REASONS NO . GASTROENTEROLOGY: NEW UNEXPLAINABLE CHANGES IN BOWEL CONTROL NO . CONSTIPATION NO . GENITOURINARY: ANY NEW CHANGE IN BLADDER CONTROL? NO . NEUROLOGY: NEW ONSET DIZZINESS OR NEUROLOGICAL CHANGES NOT MENTIONED NO . NEW NUMBNESS OR PAIN PATTERNS NOT MENTIONED AND PERTINENT TO TODAY'S VISIT NO . CARDIOLOGY: NEW CHEST PRESSURE NO . PATIENT DENIES NO . RESPIRATORY: UNEXPLAINABLE COUGH NO . NEW SHORTNESS OF BREATH NO . VITAL SIGNS WT 110.1 LBS, HT 67 IN, BMI 17.24 INDEX, BP 113/88 MM HG, HR 91 /MIN, RR 18 /MIN, TEMP 97.8 F, OXYGEN SAT % 98%, SAFE IN ENV? (Y/N) Y, NA INITIALS AW 1134, REVIEWED BY: ALIREZA. EXAMINATION GENERAL EXAMINATION: GENERALNO ACUTE DISTRESS, WELL NOURISHED AND HYDRATED. PSYCHAPPROPRIATE MOOD AND AFFECT . LUNGS:CLEAR TO AUSCULTATION BILATERALLY, NO WHEEZES, RHONCHI, RALES. HEART:NO MURMURS, REGULAR RATE AND RHYTHM. ASSESSMENTS LUMBAGO WITH SCIATICA, LEFT SIDE - M54.42 (PRIMARY) CHRONIC USE OF OPIATE DRUG FOR THERAPEUTIC PURPOSE - Z79.891 TREATMENT LUMBAGO WITH SCIATICA, LEFT SIDE STOP CYCLOBENZAPRINE HCL TABLET, 10 MG, 1 TABLET AT BEDTIME NEEDED, ORALLY, THREE TIMES DAILY NEEDED REFILL TRAMADOL HCL TABLET, 50 MG, 1 TABLET NEEDED, ORALLY, TWICE DAILY NEEDED, 30 DAYS, 60 START TIZANIDINE HCL TABLET, 4 MG, 1 TABLET NEEDED, ORALLY, THREE TIMES A DAY, 30 DAYS, 90, REFILLS 2 NOTES: 45-YEAR-OLD FEMALE IN FOR CHRONIC PAIN FOLLOW-UP. GIVEN PRESENTING SYMPTOMS RECOMMEND STOPPING CYCLOBENZAPRINE AND STARTING TIZANIDINE WITH FOLLOW-UP IN 3 MONTHS. PATIENT HAS EXPRESSED UNDERSTANDING OF AND WAS IN AGREEMENT WITH TREATMENT PLAN. GIVEN TIME TO ASK QUESTIONS AND EXPRESS CONCERNS. [employer]STOP REGISTRY REVIEWED AND DEMONSTRATES COMPLLIANCE. (REF # [id number] ) BRINGS IN MEDICATIONS WHICH IS APPROPRIATE FOR WHAT WAS DISPENSED. RECENT URINE TOXICOLOGY REVIEWED. NO UNAUTHORIZED MEDICATIONS. NO ILLICIT SUBSTANCES AND PRESCRIBED MEDICATIONS WERE PRESENT. CHRONIC USE OF OPIATE DRUG FOR THERAPEUTIC PURPOSE LAB: URINE TEST GROUP MELQUIADES BALLARD 09/29/2020 12:10:13 PM > TRAMADOL 09/26/20 OTHERS NOTES: TIZANIDINE MATERIAL WAS PRINTED. DISPOSITION & COMMUNICATION FOLLOW UP 3 MONTHS (REASON: BACK PAIN) ELECTRONICALLY SIGNED BY NAJMA WATTERS ON 09/30/2020 AT 09:46 AM EDT DISCLAIMER : THIS IS A VISIT SUMMARY EXTRACTED FROM THE [employer] CHART. IT IS NOT A COPY OF THE [employer] PROGRESS NOTE. AVERYD
== END ==
LOC: M PAIN 11:30
PROVIDERS: ATTEND Family Medicine
DX: M54.42 Lumbago with sciatica, left side (principal); F17.210 Nicotine dependence, cigarettes, uncomplicated; F41.9 Anxiety disorder, unspecified; F32.9 Major depressive disorder, single episode, unspecified; J45.909 Unspecified asthma, uncomplicated; K21.9 Gastro-esophageal reflux disease without esophagitis; K58.9 Irritable bowel syndrome, unspecified; D64.9 Anemia, unspecified; R53.82 Chronic fatigue, unspecified; Z79.891 Long term (current) use of opiate analgesic; Z88.0 Allergy status to penicillin; Z88.6 Allergy status to analgesic agent; Z88.8 Allergy status to other drugs, medicaments and biological substances

== ENCOUNTER → 2021-04-23 | Outpatient (REF) | payer OTHER, MEDICAID ==
[~2021-04-23] MED LIST changes: +QUET1TAB17 PO; -QUET25TA3 PO
== END ==
LOC: M SFHCADAM 12:44
PROVIDERS: ATTEND Physician Assistant Medical
DX: R19.7 Diarrhea, unspecified (principal); N39.41 Urge incontinence

== ENCOUNTER → 2021-04-23 | Outpatient (REF) | payer OTHER, MEDICAID ==
[~2021-04-23] MED LIST changes: +BUSP10TA PO; +CLAR2.5T PO; +FLON1SPR NARES; +IBUP80TA PO; +LIDO2SO PO; +LORA-674 PO; -MONT10TA10 PO; +MONT10TA97 PO; +QVAR80AE8 INH; +TIZA10TA PO; +VITA200032 PO
== END ==
LOC: M SFHCADAM 09:26
PROVIDERS: ATTEND Physician Assistant Medical
DX: N39.41 Urge incontinence (principal); F17.210 Nicotine dependence, cigarettes, uncomplicated; Q79.60 Ehlers-Danlos syndrome, unspecified; F41.1 Generalized anxiety disorder; R19.7 Diarrhea, unspecified

== ENCOUNTER → 2021-04-24 | Outpatient (CLI) | payer OTHER ==
[2021-04-24 13:51] LABS: BASO # 0.1 10^3/uL (0.0-0.2); BASO % 0.8 % (0.0-1.0); EOS # 0.1 10^3/uL (0.0-0.5); EOS % 1.2 % (0.0-3.0); HEMATOCRIT 39.7 % (36.0-47.0); HEMOGLOBIN 13.1 g/dl (12.0-15.5); LYMPH # 2.7 10^3/uL (1.5-5.0); LYMPH % 36.1 % (24.0-44.0); MEAN CORPUSCULAR HEMOGLOBIN 29.6 pg (27.0-33.0); MEAN CORPUSCULAR VOLUME 89.6 fl (80.0-96.0); MONO # 0.7 10^3/uL (0.0-0.8); NEUTROPHILS # 3.8 10^3/uL (1.5-8.5); NEUTROPHILS % 51.5 % (36.0-66.0); PLATELET COUNT, AUTOMATED 250 10^3/uL (150-450); RED BLOOD COUNT 4.43 10^6/uL (4.00-5.40); WHITE BLOOD COUNT 7.4 10^3/uL (4.0-10.0)
[2021-04-24 14:25] LABS: ALBUMIN 3.9 GM/DL (3.2-5.2); ALT/SGPT 16 U/L (12-78); BILIRUBIN,TOTAL 0.6 MG/DL (0.2-1.0); BLOOD UREA NITROGEN 14 MG/DL (7-18); CALCIUM LEVEL 9.2 MG/DL (8.5-10.1); CARBON DIOXIDE LEVEL 29 MEQ/L (21-32); CHLORIDE LEVEL 109 MEQ/L (98-107); CHOLESTEROL LEVEL 151 MG/DL (<200); CHOLESTEROL RISK RATIO 2.516 (<5); CREATININE FOR GFR 0.87 MG/DL (0.55-1.30); FREE T4 0.89 NG/DL (0.76-1.46); GLOMERULAR FILTRATION RATE > 60.0 (>58); GLUCOSE, FASTING 83 MG/DL (70-100); HDL CHOLESTEROL 60 MG/DL (>40); LDL CHOLESTEROL 80 MG/DL (<100); NON-HDL-C 91 MG/DL; POTASSIUM SERUM 4.3 MEQ/L (3.5-5.1); SODIUM LEVEL 142 MEQ/L (136-145); TOTAL 25(OH) VITAMIN D 19.3 NG/ML (30.0-100.0); TOTAL PROTEIN 6.8 GM/DL (6.4-8.2); TRIGLYCERIDES LEVEL 54 MG/DL (<150)
== END ==
LOC: M LAB 12:43
PROVIDERS: ATTEND Physician Assistant Medical
DX: N39.41 Urge incontinence (principal); F17.210 Nicotine dependence, cigarettes, uncomplicated; Q79.60 Ehlers-Danlos syndrome, unspecified; F41.1 Generalized anxiety disorder; R19.7 Diarrhea, unspecified

== ENCOUNTER 2021-04-25 21:01 | Emergency (ER) | payer OTHER ==
[~2021-04-25] VITALS: Ht 170.2 cm; Wt 50.9 kg
[~2021-04-25 21:01] MED LIST changes: -BUSP10TA PO; -CLAR2.5T PO; -FLON1SPR NARES; -IBUP80TA PO; -LIDO2SO PO; -LORA-674 PO; -QVAR80AE8 INH; -TIZA10TA PO; -VITA200032 PO
[2021-04-25 21:02] VITALS: BP 123/71
[2021-04-25 22:19] LABS: RSV AMPLIFICATION NEGATIVE (NEGATIVE)
[2021-04-25] MEDS ORDERED: LIDOCAINE VISCOUS 2% SOLN 15ML UDC SS ONE (22:25)
[2021-04-25] MEDS ORDERED: CLAR2.5T PO (22:54)
[2021-04-25] MEDS ORDERED: LIDO2SO PO (22:54)
[2021-05-14] MEDS ORDERED: TIZA10TA PO (01:34)
[2021-05-14] MEDS ORDERED: VITA200032 PO (01:34)
== END 2021-04-25 23:02 | disposition home or self-care (01) ==
LOC: M ED 21:01
DX: J06.9 Acute upper respiratory infection, unspecified (principal); J45.909 Unspecified asthma, uncomplicated; K21.9 Gastro-esophageal reflux disease without esophagitis; F31.9 Bipolar disorder, unspecified; Z79.899 Other long term (current) drug therapy; Z88.0 Allergy status to penicillin; Z88.8 Allergy status to other drugs, medicaments and biological substances

== ENCOUNTER 2021-05-13 21:04 | Emergency (ER) | payer OTHER, MEDICAID ==
[~2021-05-13] VITALS: Ht 170.2 cm; Wt 52.3 kg
[~2021-05-13 21:04] MED LIST changes: +CLAR2.5T PO; +LIDO2SO PO; +MONT10TA10 PO; -MONT10TA97 PO
[2021-05-14] MEDS ORDERED: HYDR-3363 PO (01:32)
[2021-05-14] MEDS ORDERED: BUSP10TA PO (01:32)
[2021-05-14] MEDS ORDERED: LORA-674 PO (01:34)
[2021-05-14] MEDS ORDERED: TIZA4TAB4 PO (01:34)
[2021-05-14] MEDS ORDERED: QVAR80AE8 INH (01:34)
[2021-05-14] MEDS ORDERED: D 202000 PO (01:34)
[2021-05-14] MEDS ORDERED: IBUP80TA PO (01:53)
[2021-05-14] MEDS ORDERED: FLON1SPR NARES (01:53)
[2021-05-14 02:02] VITALS: BP 136/72
== END 2021-05-14 02:04 | disposition home or self-care (01) ==
LOC: M ED 21:04
DX: J06.9 Acute upper respiratory infection, unspecified (principal); J45.909 Unspecified asthma, uncomplicated; F17.200 Nicotine dependence, unspecified, uncomplicated; Z88.0 Allergy status to penicillin; Z88.8 Allergy status to other drugs, medicaments and biological substances; Z79.899 Other long term (current) drug therapy
CPT/HCPCS: 87804; 99283; U0003

== ENCOUNTER → 2021-05-15 | Outpatient (CLI) | payer MEDICAID ==
[~2021-05-15] MED LIST changes: +BUSP10TA PO; +FLON1SPR NARES; +IBUP80TA PO; +LORA-674 PO; -MONT10TA10 PO; +MONT10TA97 PO; +QVAR80AE8 INH; +TIZA10TA PO; +VITA200032 PO
== END ==
LOC: M OUTALCOH 08:11
PROVIDERS: ATTEND Psychiatry & Neurology Psychiatry
DX: Z02.89 Encounter for other administrative examinations (principal)

== ENCOUNTER 2021-05-26 10:00 | Outpatient (RCR) | payer MEDICAID | END 2021-06-08 | LOC: M OUTALCOH 10:00 | PROVIDERS: ATTEND Psychiatry & Neurology Psychiatry | DX: F14.20 Cocaine dependence, uncomplicated (principal); F17.200 Nicotine dependence, unspecified, uncomplicated; F15.10 Other stimulant abuse, uncomplicated ==

== ENCOUNTER → 2021-06-19 | Outpatient (REF) | payer OTHER, MEDICAID | LOC: M SFHCADAM 16:16 | PROVIDERS: ATTEND Family Medicine | DX: R09.81 Nasal congestion (principal) ==

== ENCOUNTER 2022-01-25 20:12 | Emergency (ER) | payer OTHER ==
[~2022-01-25] VITALS: Ht 167.6 cm; Wt 58.0 kg
[2022-01-25 21:01] VITALS: BP 129/70
[2022-01-25] MEDS ORDERED: ALPRAZolam 0.5 MG TAB PO ONE (21:50)
[2022-01-25] MEDS ORDERED: XANA0.5T PO (21:54)
== END 2022-01-25 23:38 | disposition home or self-care (01) ==
LOC: M ED 20:12
DX: F32.A Depression, unspecified (principal); F41.9 Anxiety disorder, unspecified; J45.909 Unspecified asthma, uncomplicated; Z90.710 Acquired absence of both cervix and uterus; Z88.0 Allergy status to penicillin; Z88.8 Allergy status to other drugs, medicaments and biological substances; Z79.51 Long term (current) use of inhaled steroids; Z79.899 Other long term (current) drug therapy

== ENCOUNTER 2022-08-18 13:21 | Emergency (ER) | payer OTHER ==
[~2022-08-18] VITALS: Ht 172.7 cm; Wt 50.3 kg
[~2022-08-18 13:21] MED LIST changes: -CLAR2.5T PO; +DESL1TBM PO; +LIDO15SO2 PO; -LIDO2SO PO; +XANA0.5T PO
[2022-08-18] MEDS ORDERED: BOOSTRIX/ADACEL VACCINE (DIPHTH/PERTUSS/ACELL/TETANUS) 0.5ML SYR IM ONE (14:20)
[2022-08-18] MEDS ORDERED: ACETAMINOPHEN TAB 650MG DOSE (2X325MG) PO ONE (16:00)
[2022-08-18] MEDS ORDERED: CEPHALEXIN 500 MG CAP PO ONE (16:00)
[2022-08-18] MEDS ORDERED: CEPH500C PO (16:03)
[2022-08-18 16:21] VITALS: BP 132/73
== END 2022-08-18 16:23 | disposition home or self-care (01) ==
LOC: M ED 13:21
DX: S90.851A Superficial foreign body, right foot, initial encounter (principal); W25.XXXA Contact with sharp glass, initial encounter; Y92.019 Unspecified place in single-family (private) house as the place of occurrence of the external cause; Y93.01 Activity, walking, marching and hiking; Y99.8 Other external cause status; J45.909 Unspecified asthma, uncomplicated; F31.9 Bipolar disorder, unspecified; F19.10 Other psychoactive substance abuse, uncomplicated; Z88.0 Allergy status to penicillin; Z88.8 Allergy status to other drugs, medicaments and biological substances; Z79.51 Long term (current) use of inhaled steroids; Z79.899 Other long term (current) drug therapy

== ENCOUNTER 2022-09-16 20:03 | Inpatient (IN) | payer MEDICAID, OTHER ==
[~2022-09-16 20:03] MED LIST changes: +CEPH500C PO
[2022-09-16 20:52] LABS: HEMATOCRIT 39.2 % (36.0-47.0); HEMOGLOBIN 12.8 g/dl (12.0-15.5); MEAN CORPUSCULAR HEMOGLOBIN 30.3 pg (27.0-33.0); MEAN CORPUSCULAR HGB CONC 32.7 g/dl (32.0-36.5); MEAN CORPUSCULAR VOLUME 92.9 fl (80.0-96.0); PLATELET COUNT, AUTOMATED 260 10^3/uL (150-450); RED BLOOD COUNT 4.22 10^6/uL (4.00-5.40); WHITE BLOOD COUNT 7.9 10^3/uL (4.0-10.0)
[2022-09-16 21:16] LABS: AMPHETAMINES LEVEL URINE NEGATIVE (NEGATIVE); BARBITURATES URINE NEGATIVE (NEGATIVE); BENZODIAZEPINES URINE NEGATIVE (NEGATIVE); CANNABINOIDS URINE NEGATIVE (NEGATIVE); COCAINE METABOLITE URINE NEGATIVE (NEGATIVE); METHADONE URINE NEGATIVE (NEGATIVE); OPIATES URINE NEGATIVE (NEGATIVE); PHENCYCLIDINE URINE NEGATIVE (NEGATIVE)
[2022-09-16 21:18] LABS: ETHYL ALCOHOL (ETHANOL) < 0.003 % (0.000-0.010)
[2022-09-16 21:20] LABS: ACETAMINOPHEN LEVEL < 2.0 UG/ML (10.0-20.0); ALBUMIN 3.9 G/DL (3.2-5.2); ALKALINE PHOSPHATASE 76 U/L (46-116); ALT/SGPT 11 U/L (7.0-40); AST/SGOT 18 U/L (<34); BILIRUBIN,DIRECT 0.1 MG/DL (<0.4); BILIRUBIN,TOTAL 0.3 MG/DL (0.3-1.2); BLOOD UREA NITROGEN 9 MG/DL (9-23); CALCIUM LEVEL 8.8 MG/DL (8.5-10.1); CARBON DIOXIDE LEVEL 27 MMOL/L (20-31); CHLORIDE LEVEL 110 MMOL/L (98-107); CREATININE FOR GFR 0.76 MG/DL (0.55-1.30); GLOMERULAR FILTRATION RATE > 60.0 (>58); GLUCOSE, FASTING 81 MG/DL (60-100); POTASSIUM SERUM 3.4 MMOL/L (3.5-5.1); SALICYLATE LEVEL < 3.0 MG/DL (<30); SODIUM LEVEL 144 MMOL/L (136-145); TOTAL PROTEIN 6.4 G/DL (5.7-8.2)
[2022-09-16 21:46] LABS: HCG, SERUM QUALITATIVE NEGATIVE (NEGATIVE)
[2022-09-16] MEDS ORDERED: predniSONE 20 MG TAB PO ONE (22:10)
[2022-09-16] MEDS ORDERED: diphenhydrAMINE 50MG CAP PO ONE (22:10)
[2022-09-17] MEDS ORDERED: ALBU2.5V10 INH (04:49)
[2022-09-17] MEDS ORDERED: VITA200021 PO (04:49)
[2022-09-17] MEDS ORDERED: HYDR-3363 PO (04:49)
[2022-09-17] MEDS ORDERED: BUSP10TA PO (04:49)
[2022-09-17] MEDS ORDERED: ALBU8.5H INH (04:49)
[2022-09-17] MEDS ORDERED: HOME MED LIST COMPLETE! XX SCH (04:50)
[2022-09-17] MEDS ORDERED: IBUPROFEN 400MG TAB PO PRN (07:55)
[2022-09-17] MEDS ORDERED: MOM 30ML SUSPENSION UDC PO PRN (07:55)
[2022-09-17] MEDS ORDERED: ALBUTEROL 90 MCG/ACT 8GM HFA INHALER INH PRN (07:55)
[2022-09-17] MEDS ORDERED: ACETAMINOPHEN TAB 650MG DOSE (2X325MG) PO PRN (07:55)
[2022-09-17] MEDS ORDERED: ALBUTEROL SULFATE 2.5MG/0.5ML INH NEB SOLN INH PRN (07:55)
[2022-09-17 10:00] VITALS: BP 112/61
[2022-09-17] MEDS: VITAMIN D 1,000 INTERNATIONAL UNITS TABLET PO SCH (10:32)
[2022-09-17] MEDS: NICOTINE 21MG/24HR 1 EA TRANSDERMAL TD SCH (10:32)
[2022-09-17] MEDS: busPIRone 10 MG TAB PO SCH ×2 (10:32→21:51)
[2022-09-17] MEDS: hydrOXYzine 50 MG TAB PO PRN ×2 (10:32→17:27)
[2022-09-17] MEDS: OLANZapine ORAL DISINTEGRATING TAB 5MG PO PRN (17:26)
[2022-09-18 06:29] VITALS: BP 108/56
[2022-09-18] MEDS: NICOTINE 21MG/24HR 1 EA TRANSDERMAL TD SCH (08:23)
[2022-09-18] MEDS: VITAMIN D 1,000 INTERNATIONAL UNITS TABLET PO SCH (08:24)
[2022-09-18] MEDS: busPIRone 10 MG TAB PO SCH ×2 (08:24→20:15)
[2022-09-18] MEDS: OLANZapine ORAL DISINTEGRATING TAB 5MG PO PRN ×2 (08:24→20:16)
[2022-09-18 08:39] VITALS: BP 112/64
[2022-09-18] MEDS: diphenhydrAMINE 25MG CAP PO PRN (08:53)
[2022-09-18 16:25] VITALS: BP 116/59
[2022-09-18] MEDS: hydrOXYzine 50 MG TAB PO PRN (17:11)
[2022-09-18] MEDS: SODIUM CHLORIDE NASAL 0.65% SPRAY BTL (OCEAN) PRN (20:15)
[2022-09-18] MEDS: traZODone 50 MG TAB PO PRN (21:41)
[2022-09-19 06:35] VITALS: BP 104/62
[2022-09-19] MEDS: VITAMIN D 1,000 INTERNATIONAL UNITS TABLET PO SCH (08:35)
[2022-09-19] MEDS: busPIRone 10 MG TAB PO SCH ×2 (08:35→20:20)
[2022-09-19] MEDS: NICOTINE 21MG/24HR 1 EA TRANSDERMAL TD SCH (08:35)
[2022-09-19] MEDS: MAALOX 30 ML SUSP *UDC PO PRN ×2 (11:47→20:22)
[2022-09-19] MEDS: DULoxetine 30MG CAPSULE (CYMBALTA) PO SCH (12:23)
[2022-09-19 16:39] VITALS: BP 123/66
[2022-09-19] MEDS: diphenhydrAMINE 25MG CAP PO PRN (19:28)
[2022-09-19] MEDS: hydrOXYzine 50 MG TAB PO PRN (20:19)
[2022-09-19] MEDS: traZODone 50 MG TAB PO PRN (20:20)
[2022-09-19] MEDS: SODIUM CHLORIDE NASAL 0.65% SPRAY BTL (OCEAN) PRN (20:21)
[2022-09-20 06:23] VITALS: BP 113/57
[2022-09-20] MEDS: VITAMIN D 1,000 INTERNATIONAL UNITS TABLET PO SCH (08:38)
[2022-09-20] MEDS: hydrOXYzine 50 MG TAB PO PRN (08:38)
[2022-09-20] MEDS: busPIRone 10 MG TAB PO SCH (08:38)
[2022-09-20] MEDS: DULoxetine 30MG CAPSULE (CYMBALTA) PO SCH (08:38)
[2022-09-20] MEDS: NICOTINE 21MG/24HR 1 EA TRANSDERMAL TD SCH (08:40)
[2022-09-20] MEDS ORDERED: TRAZ-252 PO (09:59)
[2022-09-20] MEDS ORDERED: CYMB1CAP5 PO (09:59)
[2022-09-20] MEDS ORDERED: BUSP10TA PO (09:59)
[2022-09-21] MEDS ORDERED: HYDR50TA70 PO ×2 (11:55→11:56)
== END 2022-09-20 11:19 | disposition home or self-care (01) | DRG 753 ==
LOC: M ED 20:03 → UNDOADMIN 09-17 04:05 → M ED INP 09-17 04:05 → M PSY 09-17 10:06
PROVIDERS: ADMIT Student in an Organized Health Care Education/Training Program; ATTEND Psychiatry & Neurology Psychiatry
DX: F32.89 Other specified depressive episodes (principal); R45.851 Suicidal ideations; R41.83 Borderline intellectual functioning; F17.210 Nicotine dependence, cigarettes, uncomplicated; E55.9 Vitamin D deficiency, unspecified; J45.909 Unspecified asthma, uncomplicated; Z71.6 Tobacco abuse counseling; Z79.899 Other long term (current) drug therapy; Z88.0 Allergy status to penicillin; Z88.8 Allergy status to other drugs, medicaments and biological substances; Z20.822 Contact with and (suspected) exposure to COVID-19

== ENCOUNTER 2023-01-07 22:38 | Emergency (ER) | payer MEDICAID, OTHER ==
[~2023-01-07] VITALS: Ht 172.7 cm; Wt 47.7 kg
[~2023-01-07 22:38] MED LIST changes: +ALBU2.5V10 INH; +ALBU8.5H INH; +CYMB1CAP5 PO; +HYDR50TA70 PO; +TRAZ-252 PO; +VITA200021 PO
[2023-01-07 23:19] LABS: HEMOGLOBIN 12.5 g/dl (12.0-15.5); MEAN CORPUSCULAR HEMOGLOBIN 30.3 pg (27.0-33.0); MEAN CORPUSCULAR HGB CONC 32.9 g/dl (32.0-36.5); MEAN CORPUSCULAR VOLUME 92.2 fl (80.0-96.0); PLATELET COUNT, AUTOMATED 305 10^3/uL (150-450); RED BLOOD COUNT 4.12 10^6/uL (4.00-5.40); WHITE BLOOD COUNT 11.4 10^3/uL (4.0-10.0)
[2023-01-07 23:41] LABS: BARBITURATES URINE NEGATIVE (NEGATIVE); BENZODIAZEPINES URINE NEGATIVE (NEGATIVE)
[2023-01-07 23:42] LABS: CANNABINOIDS URINE NEGATIVE (NEGATIVE); METHADONE URINE NEGATIVE (NEGATIVE); OPIATES URINE NEGATIVE (NEGATIVE); PHENCYCLIDINE URINE NEGATIVE (NEGATIVE)
[2023-01-07 23:44] LABS: AMPHETAMINES LEVEL URINE POSITIVE (NEGATIVE); COCAINE METABOLITE URINE POSITIVE (NEGATIVE); ETHYL ALCOHOL (ETHANOL) < 0.003 % (0.000-0.010)
[2023-01-07 23:46] LABS: SALICYLATE LEVEL < 3.0 MG/DL (<30)
[2023-01-07 23:47] LABS: ACETAMINOPHEN LEVEL < 2.0 UG/ML (10.0-20.0); ALBUMIN 4.1 G/DL (3.2-5.2); ALKALINE PHOSPHATASE 80 U/L (46-116); ALT/SGPT 15 U/L (7.0-40); AST/SGOT 14 U/L (<34); BILIRUBIN,DIRECT 0.1 MG/DL (<0.4); BILIRUBIN,TOTAL 0.2 MG/DL (0.3-1.2); BLOOD UREA NITROGEN 19 MG/DL (9-23); CALCIUM LEVEL 9.2 MG/DL (8.5-10.1); CARBON DIOXIDE LEVEL 29 MMOL/L (20-31); CHLORIDE LEVEL 102 MMOL/L (98-107); CREATININE FOR GFR 0.77 MG/DL (0.55-1.30); GLOMERULAR FILTRATION RATE > 60.0 (>58); GLUCOSE, FASTING 117 MG/DL (60-100); POTASSIUM SERUM 4.2 MMOL/L (3.5-5.1); SODIUM LEVEL 139 MMOL/L (136-145); TOTAL PROTEIN 7.1 G/DL (5.7-8.2)
[2023-01-07 23:48] LABS: THYROID STIMULATING HORMONE 2.268 uIU/ML (0.55-4.78)
[2023-01-08 00:45] LABS: HCG, SERUM QUALITATIVE NEGATIVE (NEGATIVE)
[2023-01-08] MEDS ORDERED: DULO1CAP5 PO (08:29)
[2023-01-08] MEDS ORDERED: hydrOXYzine 50 MG TAB PO PRN (09:55)
[2023-01-08] MEDS ORDERED: LORazepam 2 MG TAB PO STA (20:52)
[2023-01-08] MEDS ORDERED: busPIRone 10 MG TAB PO ONE (20:55)
[2023-01-08] MEDS ORDERED: busPIRone 10 MG TAB PO SCH (21:00)
[2023-01-08 21:30] VITALS: TEMP 98
[2023-01-08 22:49] VITALS: BP 147/64; O2SAT 99
[2023-01-09] MEDS ORDERED: DULoxetine 30MG CAPSULE (CYMBALTA) PO SCH (09:00)
[2023-01-09] MEDS ORDERED: VITAMIN D 1,000 INTERNATIONAL UNITS TABLET PO SCH (09:00)
== END 2023-01-08 22:48 ==
LOC: M ED 22:38
DX: F14.129 Cocaine abuse with intoxication, unspecified (principal); R45.851 Suicidal ideations; F29 Unspecified psychosis not due to a substance or known physiological condition; F19.10 Other psychoactive substance abuse, uncomplicated

== ENCOUNTER → 2024-02-29 | Outpatient (REF) | payer OTHER, MEDICAID ==
[~2024-02-29] MED LIST changes: +DULO1CAP5 PO; -LIDO15SO2 PO; +LIDO15SO9 PO; +LORA-1041 PO; -LORA-674 PO
[2024-02-29 18:13] LABS: ALBUMIN 4.2 G/DL (3.2-5.2); ALKALINE PHOSPHATASE 61 U/L (46-116); ALT/SGPT 17 U/L (7.0-40); AST/SGOT 10 U/L (<34); BILIRUBIN,TOTAL 0.5 MG/DL (0.3-1.2); BLOOD UREA NITROGEN 13 MG/DL (9-23); CALCIUM LEVEL 9.9 MG/DL (8.5-10.1); CARBON DIOXIDE LEVEL 32 MMOL/L (20-31); CHLORIDE LEVEL 106 MMOL/L (98-107); CHOLESTEROL LEVEL 189 MG/DL (<200); CREATININE FOR GFR 0.76 MG/DL (0.55-1.30); GLOMERULAR FILTRATION RATE > 60.0 (>58); GLUCOSE, FASTING 81 MG/DL (60-100); HDL CHOLESTEROL 60.9 MG/DL (>40); LDL CHOLESTEROL 110.5 MG/DL (<100); NON-HDL-C 128.1 MG/DL; POTASSIUM SERUM 4.6 MMOL/L (3.5-5.1); SODIUM LEVEL 139 MMOL/L (136-145); TOTAL PROTEIN 7.2 G/DL (5.7-8.2); TRIGLYCERIDES LEVEL 88 MG/DL (<150)
[2024-02-29 18:15] LABS: THYROID STIMULATING HORMONE 1.731 uIU/ML (0.55-4.78); TOTAL 25(OH) VITAMIN D 17.9 NG/ML (20.0-100.0)
[2024-02-29 18:43] LABS: HEMOGLOBIN A1c 5.1 % (4.0-6.0)
== END ==
LOC: M LAB REF 17:24
PROVIDERS: ATTEND Physician Assistant
DX: K58.9 Irritable bowel syndrome, unspecified (principal); E55.9 Vitamin D deficiency, unspecified; Z13.220 Encounter for screening for lipoid disorders; R63.6 Underweight

== ENCOUNTER 2024-11-21 20:50 | Emergency (ER) | payer OTHER ==
[~2024-11-21] VITALS: Ht 172.7 cm; Wt 44.3 kg
[~2024-11-21 20:50] MED LIST changes: -CYCL5TAB; +CYCL5TAB4; +DIPH-429 PO; +GABA-1171 PO; +HYDR1CRE30 TOP; +PRAZ1CAP PO
[2024-11-21 21:53] LABS: PLATELET COUNT, AUTOMATED 254 10^3/uL (150-450)
[2024-11-21 22:09] LABS: BARBITURATES URINE NEGATIVE (NEGATIVE); BENZODIAZEPINES URINE NEGATIVE (NEGATIVE); CANNABINOIDS URINE NEGATIVE (NEGATIVE); COCAINE METABOLITE URINE NEGATIVE (NEGATIVE); METHADONE URINE NEGATIVE (NEGATIVE); OPIATES URINE NEGATIVE (NEGATIVE); PHENCYCLIDINE URINE NEGATIVE (NEGATIVE)
[2024-11-21 22:12] LABS: AMPHETAMINES LEVEL URINE POSITIVE (NEGATIVE); ETHYL ALCOHOL (ETHANOL) 0.003 % (0.000-0.010)
[2024-11-21 22:13] LABS: SALICYLATE LEVEL < 3.0 MG/DL (<30)
[2024-11-21 22:14] LABS: ALT/SGPT 22 U/L (7.0-40); AST/SGOT 26 U/L (<34); CALCIUM LEVEL 9.6 MG/DL (8.5-10.1); CARBON DIOXIDE LEVEL 30 MMOL/L (20-31); CHLORIDE LEVEL 103 MMOL/L (98-107); CREATININE FOR GFR 0.76 MG/DL (0.55-1.30); GLOMERULAR FILTRATION RATE > 90.0 (>58); POTASSIUM SERUM 3.8 MMOL/L (3.5-5.1); SODIUM LEVEL 143 MMOL/L (136-145)
[2024-11-22 05:00] VITALS: BP 110/65; TEMP 97.8; O2SAT 97
[2024-11-22] MEDS ORDERED: HOME MED LIST COMPLETE! XX SCH (11:30)
== END 2024-11-22 14:52 | disposition home or self-care (01) ==
LOC: M ED 20:50
DX: F15.159 Other stimulant abuse with stimulant-induced psychotic disorder, unspecified (principal); F17.210 Nicotine dependence, cigarettes, uncomplicated; Z88.0 Allergy status to penicillin; Z88.8 Allergy status to other drugs, medicaments and biological substances; Z79.51 Long term (current) use of inhaled steroids; Z79.899 Other long term (current) drug therapy

== ENCOUNTER 2025-02-04 11:01 | Emergency (ER) | payer OTHER ==
[~2025-02-04] VITALS: Ht 172.7 cm; Wt 48.0 kg
[~2025-02-04 11:01] MED LIST changes: -ZOLP5TAB PO; +ZOLP5TAB9 PO
[2025-02-04 11:04] VITALS: BP 98/50; TEMP 98; O2SAT 99
[2025-02-04] MEDS: traMADol 50 MG TAB PO ONE (14:18)
[2025-02-04] MEDS: ACETAMINOPHEN 325 MG TAB PO ONE (14:19)
== END 2025-02-04 15:09 | disposition left against medical advice (07) ==
LOC: M ED 11:01
DX: M51.360 Other intervertebral disc degeneration, lumbar region with discogenic back pain only (principal); M43.16 Spondylolisthesis, lumbar region; K21.9 Gastro-esophageal reflux disease without esophagitis; J45.909 Unspecified asthma, uncomplicated; F41.9 Anxiety disorder, unspecified; F31.9 Bipolar disorder, unspecified; F17.210 Nicotine dependence, cigarettes, uncomplicated; Z88.0 Allergy status to penicillin; Z88.8 Allergy status to other drugs, medicaments and biological substances; Z79.51 Long term (current) use of inhaled steroids; Z79.899 Other long term (current) drug therapy; Z53.9 Procedure and treatment not carried out, unspecified reason